=== PATIENT | female | born 1945 | race Caucasian/White ===

== ENCOUNTER 2016-10-02 21:05 | Inpatient (IN) | payer MEDICARE ==
[2016-10-02] MEDS ORDERED: DIPH,PERTUS(ACELL)TETVAC-LF 0.5 ML VIAL IM ONE (21:39)
[2016-10-02] MEDS ORDERED: traMADol 50 MG TAB PO STA (21:39)
[2016-10-02 21:44] LABS: Glucose,Whole Blood 100 mg/dL (75-99)
--- NOTE | 2016-10-02 21:45 | ED ---
Syncope HPI - General Chief Complaint: Altered Mental Status Stated Complaint: Poss TIA Time Seen by Provider: 10/02/16 21:27 Source: patient Mode of arrival: EMS Limitations: no limitations - History of Present Illness Initial Comments: This patient is a 71-year-old woman brought by EMS to be evaluated after she had what appears to be a syncopal episode. The patient states that she had been using her computer tonight when she started feeling lightheaded, she states it felt like she was going to pass out. She states that she has had this feeling before and it usually gets better if she does something, so she stood up, and then the next thing she recalls is waking up and being on the floor with her at her side. The patient states that in passing out feels like she had fallen and struck her lip, and also skinned her knee. She denies other injuries. The patient denies any other prodromal symptoms, including no chest pain, dyspnea, palpitations, diaphoresis, nausea or vomiting. She states that when she regained consciousness she was not having any of these symptoms either. The patient's phone EMS after she awoke and they brought her here to be evaluated. MD Complaint: loss of consciousness -: minutes(s) Prodromal Symptoms: lightheaded -: second(s) Witnessed: yes - by bystander Injuries Sustained Associated with Event: Mouth/Tongue Current Symptoms: back to baseline Context: standing up Treatments Prior to Arrival: none - Related Data Home Medications Medication Instructions Recorded Confirmed L.acidoph,Paracasei, B.lactis 1 tab PO DAILY 10/26/14 10/02/16 [Probiotic] Levothyroxine Sodium [Levoxyl] 150 mcg PO DAILY 10/26/14 10/02/16 Losartan Potassium 100 mg PO DAILY 10/26/14 10/02/16 Pioglitazone HCl [Actos] 15 mg PO DAILY 10/26/14 10/02/16 Vit No.124/Iron/FA 1 tab PO HS 10/26/14 10/02/16 [ Vitamin Tablet] Ranitidine HCl [Zantac] 150 mg PO DAILY 10/26/14 10/02/16 Risedronate Sodium [Actonel] 35 mg PO DORANTES 10/26/14 10/02/16 Zolpidem Tartrate [Ambien] 10 mg PO HS 10/26/14 10/02/16 traMADol HCL/ACETAMINOPHEN 1 tab PO Q4HR PRN 10/26/14 10/02/16 [Ultracet 37.5-325] traMADol HCl [Ultram] 50 mg PO TID PRN 10/26/14 10/02/16 Docusate [Colace] 100 mg PO HS 11/07/14 10/02/16 Biotin 5 mg PO HS 10/02/16 10/02/16 Cholecalciferol [Vitamin D3] 5,000 unit PO DAILY 10/02/16 10/02/16 Cyanocobalamin [Vitamin B-12] 500 mcg PO HS 10/02/16 10/02/16 Linaclotide [Linzess] 290 mcg PO DAILY 10/02/16 10/02/16 Magnesium Oxide 800 mg PO HS 10/02/16 10/02/16 Pantoprazole Sodium [Protonix] 40 mg PO HS 10/02/16 10/02/16 Tart Rose 1 tab PO HS 10/02/16 10/02/16 Wheat Dextrin [Benefiber] 1 pack PO QID 10/02/16 10/02/16 Allergies Allergy/AdvReac Type Severity Reaction Status Date / Time Anesthetics - Amide Type AdvReac MAKES RLS Verified 10/02/16 21:46 FLARE UP Review of Systems ROS Statement: Those systems with pertinent positive or pertinent negative responses have been documented in the HPI. ROS Other: All systems not noted in ROS Statement are negative. Constitutional: Denies: fever, chills, weakness Eyes: Denies: vision change Respiratory: Denies: cough, dyspnea Cardiovascular: Reports: syncope. Denies: chest pain, palpitations, dyspnea on exertion, orthopnea, edema Gastrointestinal: Denies: abdominal pain, vomiting, diarrhea Genitourinary: Denies: dysuria, hematuria Musculoskeletal: Denies: back pain Skin: Reports: other (Abrasion) Neurological: Denies: headache, weakness, numbness, paresthesias Hematological/Lymphatic: Denies: easy bleeding Past Medical History Past Medical History: Diabetes Mellitus, GERD/Reflux, Hypertension, Osteoarthritis (OA), Thyroid Disorder History of Any Multi-Drug Resistant Organisms: None Reported Past Surgical History: Bariatric Surgery Additional Past Surgical History / Comment(s): GASTRIC BYPASS 1993 Past Anesthesia/Blood Transfusion Reactions: Postoperative Nausea & Vomiting ( PONV) Past Psychological History: No Psychological Hx Reported Smoking Status: Never smoker Past Alcohol Use History: None Reported - Past Family History Brother(s) Family Medical History: Coronary Artery Disease (CAD), CVA/TIA, Diabetes Mellitus Father Family Medical History: Coronary Artery Disease (CAD), Diabetes Mellitus Mother Family Medical History: Coronary Artery Disease (CAD), Diabetes Mellitus General Exam Limitations: no limitations General appearance: alert, in no apparent distress Head exam: Present: atraumatic, normocephalic, normal inspection Eye exam: Present: normal appearance, PERRL, EOMI. Absent: scleral icterus, conjunctival injection ENT exam: Present: mucous membranes moist, other (Patient has abrasion to the mucosal aspect of the right lower lip. There is also contusion at the tip of the tongue. No laceration requiring sutures. No dental tenderness or version) Neck exam: Present: normal inspection, full ROM. Absent: tenderness, meningismus Respiratory exam: Present: normal lung sounds bilaterally. Absent: respiratory distress, wheezes, rales, rhonchi, stridor, chest wall tenderness Cardiovascular Exam: Present: regular rate, normal rhythm, normal heart sounds. Absent: systolic murmur, diastolic murmur, rubs, gallop GI/Abdominal exam: Present: soft. Absent: distended, tenderness, guarding, rebound, mass Extremities exam: Present: normal inspection, normal capillary refill. Absent: pedal edema, calf tenderness Back exam: Present: normal inspection, full ROM, other (No bony tenderness or deformity about the knee or mandible or facial bones). Absent: tenderness, CVA tenderness (R), CVA tenderness (L), vertebral tenderness Neurological exam: Present: alert, oriented X3, CN II-XII intact. Absent: motor sensory deficit Skin exam: Present: warm, dry, intact, normal color, abrasion (Anterior knee.) Course Vital Signs 10/02/16 10/02/16 10/02/16 21:11 22:17 23:14 Temperature 97.8 F Pulse Rate 83 75 79 Respiratory 16 16 16 Rate Blood Pressure 168/70 139/64 128/74 O2 Sat by Pulse 98 97 98 Oximetry EKG Findings - EKG Results: EKG: interpreted by SILVESTRE, WNL, sinus rhythm (Rate 68 bpm), normal axis, normal QRS, normal ST/T, no acute changes - RI, Pacemaker, Normal: Normal tracing: normal tracing Medical Decision Making - Lab Data Result diagrams: 10/02/16 21:45 10/02/16 21:45 Lab Results 10/02/16 10/02/16 10/02/16 Range/Units 21:42 21:45 21:45 WBC 11.4 H (3.8-10.6) k/uL RBC 4.33 (3.80-5.40) m/uL Hgb 12.6 (11.4-16.0) gm/dL Hct 38.5 (34.0-46.0) % MCV 88.9 (80.0-100.0) fL MCH 29.1 (25.0-35.0) pg MCHC 32.7 (31.0-37.0) g/dL RDW 14.2 (11.5-15.5) % Plt Count 579 H (150-450) k/uL Neutrophils % 79 % Lymphocytes % 10 % Monocytes % 7 % Eosinophils % 1 % Basophils % 1 % Neutrophils # 9.0 H (1.3-7.7) k/uL Lymphocytes # 1.1 (1.0-4.8) k/uL Monocytes # 0.8 (0-1.0) k/uL Eosinophils # 0.2 (0-0.7) k/uL Basophils # 0.1 (0-0.2) k/uL PT (9.0-12.0) sec INR (<1.1) APTT (22.0-30.0) sec Sodium (137-145) mmol/L Potassium (3.5-5.1) mmol/L Chloride (98-107) mmol/L Carbon Dioxide (22-30) mmol/L Anion Gap mmol/L BUN (7-17) mg/dL Creatinine (0.52-1.04) mg/dL Est GFR (MDRD) Af Amer (>60 ml/min/1.73 sqM) Est GFR (MDRD) Non-Af (>60 ml/min/1.73 sqM) Glucose (74-99) mg/dL POC Glucose (mg/dL) 100 H (75-99) mg/dL POC Glu Bread Wrapping Machine Feeder ID Calcium (8.4-10.2) mg/dL Total Bilirubin (0.2-1.3) mg/dL AST (14-36) U/L ALT (9-52) U/L Alkaline Phosphatase (38-126) U/L Total Creatine Kinase 182 H (30-135) U/L CK-MB (CK-2) 2.4 (0.0-2.4) ng/mL CK-MB (CK-2) Rel Index 1.3 Troponin I <0.012 (0.000-0.034) ng/mL Total Protein (6.3-8.2) g/dL Albumin (3.5-5.0) g/dL Urine Color Urine Appearance (Clear) Urine pH (5.0-8.0) Ur Specific [place] (1.001-1.035) Urine Protein (Negative) Urine Glucose (UA) (Negative) Urine Ketones (Negative) Urine Blood (Negative) Urine Nitrite (Negative) Urine Bilirubin (Negative) Urine Urobilinogen (<2.0) mg/dL Ur Leukocyte Esterase (Negative) Urine RBC (0-5) /hpf Urine WBC (0-5) /hpf Urine Bacteria (None) /hpf Hyaline Casts (0-2) /lpf 10/02/16 10/02/16 10/02/16 Range/Units 21:45 21:45 22:25 WBC (3.8-10.6) k/uL RBC (3.80-5.40) m/uL Hgb (11.4-16.0) gm/dL Hct (34.0-46.0) % MCV (80.0-100.0) fL MCH (25.0-35.0) pg MCHC (31.0-37.0) g/dL RDW (11.5-15.5) % Plt Count (150-450) k/uL Neutrophils % % Lymphocytes % % Monocytes % % Eosinophils % % Basophils % % Neutrophils # (1.3-7.7) k/uL Lymphocytes # (1.0-4.8) k/uL Monocytes # (0-1.0) k/uL Eosinophils # (0-0.7) k/uL Basophils # (0-0.2) k/uL PT 10.5 (9.0-12.0) sec INR 1.0 (<1.1) APTT 23.6 (22.0-30.0) sec Sodium 139 (137-145) mmol/L Potassium 4.4 (3.5-5.1) mmol/L Chloride 105 (98-107) mmol/L Carbon Dioxide 25 (22-30) mmol/L Anion Gap 9 mmol/L BUN 16 (7-17) mg/dL Creatinine 0.90 (0.52-1.04) mg/dL Est GFR (MDRD) Af Amer >60 (>60 ml/min/1.73 sqM) Est GFR (MDRD) Non-Af >60 (>60 ml/min/1.73 sqM) Glucose 100 H (74-99) mg/dL POC Glucose (mg/dL) (75-99) mg/dL POC Glu Bread Wrapping Machine Feeder ID Calcium 9.2 (8.4-10.2) mg/dL Total Bilirubin 0.4 (0.2-1.3) mg/dL AST 33 (14-36) U/L ALT 37 (9-52) U/L Alkaline Phosphatase 120 (38-126) U/L Total Creatine Kinase (30-135) U/L CK-MB (CK-2) (0.0-2.4) ng/mL CK-MB (CK-2) Rel Index Troponin I (0.000-0.034) ng/mL Total Protein 7.0 (6.3-8.2) g/dL Albumin 4.2 (3.5-5.0) g/dL Urine Color Light Yellow Urine Appearance Clear (Clear) Urine pH 5.5 (5.0-8.0) Ur Specific [place] 1.009 (1.001-1.035) Urine Protein Negative (Negative) Urine Glucose (UA) Negative (Negative) Urine Ketones Negative (Negative) Urine Blood Negative (Negative) Urine Nitrite Negative (Negative) Urine Bilirubin Negative (Negative) Urine Urobilinogen <2.0 (<2.0) mg/dL Ur Leukocyte Esterase Moderate H (Negative) Urine RBC <1 (0-5) /hpf Urine WBC 11 H (0-5) /hpf Urine Bacteria Rare H (None) /hpf Hyaline Casts 1 (0-2) /lpf Disposition Clinical Impression: Syncope Disposition: ADMITTED IP TO THIS [facility] Condition: Good Instructions: Syncope (ED) Referrals: Aj Cordero DO [Primary Care Provider] - 1-2 days
[2016-10-02 22:08] LABS: ALT 37 U/L (9-52); AST 33 U/L (14-36); Alkaline Phosphatase 120 U/L (38-126); Anion Gap 9 mmol/L; Blood Urea Nitrogen 16 mg/dL (7-17); Calcium 9.2 mg/dL (8.4-10.2); Carbon Dioxide 25 mmol/L (22-30); Chloride 105 mmol/L (98-107); Glucose 100 mg/dL (74-99); Non-African American GFR(MDRD) >60 (>60 ml/min/1.73 sqM); Partial Thromboplastin Time 23.6 sec (22.0-30.0); Potassium 4.4 mmol/L (3.5-5.1); Prothrombin Time 10.5 sec (9.0-12.0); Sodium 139 mmol/L (137-145); Total Bilirubin 0.4 mg/dL (0.2-1.3)
[2016-10-02 22:13] LABS: Basophils # (A) 0.1 k/uL (0-0.2); Basophils % (A) 1 %; CH 29.6; CHCM 33.5; Eosinophils # (A) 0.2 k/uL (0-0.7); Eosinophils % (A) 1 %; HCT 38.5 % (34.0-46.0); HGB 12.6 gm/dL (11.4-16.0); Luc # (Auto) 0.24; Luc % (Auto) 2; Lymphocytes # (A) 1.1 k/uL (1.0-4.8); Lymphocytes % (A) 10 %; MCH 29.1 pg (25.0-35.0); MCHC 32.7 g/dL (31.0-37.0); MCV 88.9 fL (80.0-100.0); Mean Platelet Volume 6.5; Monocytes # (A) 0.8 k/uL (0-1.0); Monocytes % (A) 7 %; Neutrophils % (A) 79 %; RBC 4.33 m/uL (3.80-5.40); RDW 14.2 % (11.5-15.5); WBC 11.4 k/uL (3.8-10.6); WBC (Perox) 11.98
--- NOTE | 2016-10-02 22:16 | CT ---
EXAM: CT Head Without Intravenous Contrast CLINICAL HISTORY: Reason: altered mental status TECHNIQUE: Axial computed tomography images of the head/brain without intravenous contrast. CTDI is 57.4 mGy and DLP is 909.4 mGy-cm This CT exam was performed using one or more of the following dose reduction techniques: automated exposure control, adjustment of the mA and/or kV according to patient size, and/or use of iterative reconstruction technique. Coronal and sagittal reformatted images were created and reviewed. COMPARISON: No relevant prior studies available. FINDINGS: Brain: Incidental right innominate VR space. No hemorrhage. No significant white matter disease. No edema. Ventricles: Unremarkable. No ventriculomegaly. Bones/joints: Unremarkable. No acute fracture. Soft tissues: Unremarkable. Sinuses: Unremarkable as visualized. No acute sinusitis. Mastoid air cells: Unremarkable as visualized. No mastoid effusion. IMPRESSION: Unremarkable head/brain CT.
[2016-10-02 22:19] LABS: Creatine Kinase 182 U/L (30-135)
[2016-10-02 22:31] LABS: Creatine Kinase MB 2.4 ng/mL (0.0-2.4); Troponin I <0.012 ng/mL (0.000-0.034)
[2016-10-02 22:38] LABS: Appearance,Urine Clear (Clear); Bacteria,Urine Rare /hpf; Bilirubin,Urine Negative (Negative); Glucose,Urine (UA) Negative (Negative); Ketones,Urine Negative (Negative); Leukocyte Esterase,Urine Moderate (Negative); Nitrite,Urine Negative (Negative); PH, Urine 5.5 (5.0-8.0); Particle Count 1285; Protein,Urine Negative (Negative); RBC,Urine <1 /hpf (0-5); Specific Gravity,Urine 1.009 (1.001-1.035); UA Billing (MACRO vs. MICRO) MICRO; Urobilinogen,Urine <2.0 mg/dL (<2.0); WBC,Urine 11 /hpf (0-5)
--- NOTE | 2016-10-02 22:41 | XR ---
EXAM: XR Chest, 1 View CLINICAL HISTORY: Reason: altered mental status TECHNIQUE: Frontal view of the chest. COMPARISON: CXR 11/08/14 FINDINGS: Lungs: Unremarkable. No consolidation. Pleural space: Unremarkable. No pneumothorax. Heart: Unremarkable. No cardiomegaly. Mediastinum: Unremarkable. Bones/joints: Multilevel degenerative changes of the spine. IMPRESSION: No acute findings.
[2016-10-02] MEDS ORDERED: NITROGLYCERIN SL TABS 0.4 MG TAB SUBLINGUAL PRN (23:30)
[2016-10-02] MEDS ORDERED: traMADol 50 MG TAB PO PRN (23:33)
[2016-10-03] MEDS ORDERED: FAMOTIDINE 20 MG TAB PO STA (00:02)
[2016-10-03] MEDS ORDERED: HYDROcodone/APAP 5-325MG 1 EACH TAB PO PRN (00:06)
[2016-10-03] MEDS ORDERED: HYDROcodone/APAP 5-325MG 1 EACH TAB PO STA (00:06)
[2016-10-03 00:36] LABS: Glucose,Whole Blood 101 mg/dL (75-99)
[2016-10-03 01:17] VITALS: BMI 30.5
[2016-10-03 05:59] LABS: Cholesterol 145 mg/dL (<200); HDL Cholesterol 54 mg/dL (40-60); Triglycerides 51 mg/dL (<150)
[2016-10-03 06:16] LABS: Creatine Kinase 277 U/L (30-135)
[2016-10-03 06:29] LABS: Troponin I <0.012 ng/mL (0.000-0.034)
[2016-10-03] MEDS ORDERED: LEVOTHYROXINE 50 MCG TAB PO SCH (06:30)
[2016-10-03 06:32] LABS: Creatine Kinase MB 3.1 ng/mL (0.0-2.4)
[2016-10-03 08:16] VITALS: RESP 16; TEMP 98.1
--- NOTE | 2016-10-03 08:57 | US ---
EXAMINATION TYPE: US carotid duplex BILAT DATE OF EXAM: 10/03/2016 7:42 AM COMPARISON: NONE CLINICAL HISTORY: syncope. EXAM MEASUREMENTS: RIGHT: Peak Systolic Velocity (PSV) cm/sec ----- Right CCA: 98.2 ----- Right ICA: 92.2 ----- Right ECA: 97.7 ICA/CCA ratio: 0.9 RIGHT: End Diastole cm/sec ----- Right CCA: 24.5 ----- Right ICA: 28.5 ----- Right ECA: 12.0 LEFT: Peak Systolic Velocity (PSV) cm/sec ----- Left CCA: 18.6 ----- Left ICA: 30.9 ----- Left ECA: 7.9 ICA/CCA ratio: 1.2 LEFT: End Diastole cm/sec ----- Left CCA: 18.6 ----- Left ICA: 30.9 ----- Left ECA: 7.9 VERTEBRALS (direction of flow): Right Vertebral: Antegrade Left Vertebral: Antegrade No elevated velocities, no significant stenosis identified, mild bilateral plaque. IMPRESSION: No hemodynamically significant stenosis. Mild bilateral atherosclerosis.
[2016-10-03] MEDS ORDERED: LACTOBACILLUS ACIDOPH & BULGAR 1 EACH PACKET PO SCH ×2 (09:00→21:00)
[2016-10-03] MEDS ORDERED: WHEAT DEXTRIN PO SCH (09:00)
[2016-10-03] MEDS ORDERED: FAMOTIDINE 20 MG TAB PO SCH (09:00)
[2016-10-03] MEDS ORDERED: CHOLECALCIFEROL 1,000 UNIT TAB PO SCH (09:00)
[2016-10-03] MEDS ORDERED: PIOGLITAZONE 15 MG TAB PO SCH (09:00)
[2016-10-03] MEDS ORDERED: NON-FORMULARY DRUG (Linaclotide [Linzess] 290 MCG) PO SCH (09:00)
[2016-10-03] MEDS ORDERED: ASPIRIN 325 MG TAB PO SCH (09:00)
[2016-10-03] MEDS ORDERED: LOSARTAN 50 MG TAB PO SCH (09:00)
--- NOTE | 2016-10-03 09:11 | P.CRDCN ---
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 The patient was at home and the last thing she remembers that she was sitting working on her computer. Apparently the patient lost her consciousness while she was standing up according to her . Doesn't recall having any chest pain or discomfort or difficulty breathing. She was slightly confused after that episode of syncope. The patient has been maintaining normal sinus mechanism and no arrhythmia was noted during her hospitalization. The EKG showed sinus rhythm without any significant changes. The cardiac enzymes were checked and came in to be unremarkable. I will obtain an echocardiogram with Doppler. The patient already underwent carotid duplex study. If the echo and a carotid looks good the patient might be able to be discharged home and have a workup as an outpatient including stress test and event monitor. Past Medical History Past Medical History: Diabetes Mellitus, GERD/Reflux, Hypertension, Osteoarthritis (OA), Thyroid Disorder Additional Past Medical History / Comment(s): Restless Leg Syndrome (RLS) History of Any Multi-Drug Resistant Organisms: None Reported Past Surgical History: Bariatric Surgery, Joint Replacement, Ventriculoperitoneal Shunt Additional Past Surgical History / Comment(s): GASTRIC BYPASS 1993. (R) Hip replacement 05/12/2016 with revision on 05/20/2016 in [place] Past Anesthesia/Blood Transfusion Reactions: Postoperative Nausea & Vomiting ( PONV) Additional Past Anesthesia/Blood Transfusion Reaction / Comment(s): Is related to RLS Past Psychological History: No Psychological Hx Reported Smoking Status: Never smoker Past Alcohol Use History: None Reported Additional Past Alcohol Use History / Comment(s): 1 alcohol related beverage /yr Past Drug Use History: None Reported - Past Family History Brother(s) Family Medical History: Coronary Artery Disease (CAD), CVA/TIA, Diabetes Mellitus Father Family Medical History: Coronary Artery Disease (CAD), Diabetes Mellitus, Hypertension Mother Family Medical History: Coronary Artery Disease (CAD), Diabetes Mellitus, Hypertension Medications and Allergies Home Medications Medication Instructions Recorded Confirmed Type L.acidoph,Paracasei, B.lactis 1 tab PO DAILY 10/26/14 10/02/16 History [Probiotic] Levothyroxine Sodium [Levoxyl] 150 mcg PO DAILY 10/26/14 10/02/16 History Losartan Potassium 100 mg PO DAILY 10/26/14 10/02/16 History Pioglitazone HCl [Actos] 15 mg PO DAILY 10/26/14 10/02/16 History Vit No.124/Iron/FA 1 tab PO HS 10/26/14 10/02/16 History [ Vitamin Tablet] Ranitidine HCl [Zantac] 150 mg PO DAILY 10/26/14 10/02/16 History Risedronate Sodium [Actonel] 35 mg PO DORANTES 10/26/14 10/02/16 History Zolpidem Tartrate [Ambien] 10 mg PO HS 10/26/14 10/02/16 History traMADol HCL/ACETAMINOPHEN 1 tab PO Q4HR PRN 10/26/14 10/02/16 History [Ultracet 37.5-325] traMADol HCl [Ultram] 50 mg PO TID PRN 10/26/14 10/02/16 History Docusate [Colace] 100 mg PO HS 11/07/14 10/02/16 History Biotin 5 mg PO HS 10/02/16 10/02/16 History Cholecalciferol [Vitamin D3] 5,000 unit PO DAILY 10/02/16 10/02/16 History Cyanocobalamin [Vitamin B-12] 500 mcg PO HS 10/02/16 10/02/16 History Linaclotide [Linzess] 290 mcg PO DAILY 10/02/16 10/02/16 History Magnesium Oxide 800 mg PO HS 10/02/16 10/02/16 History Pantoprazole Sodium [Protonix] 40 mg PO HS 10/02/16 10/02/16 History Tart Rose 1 tab PO HS 10/02/16 10/02/16 History Wheat Dextrin [Benefiber] 1 pack PO QID 10/02/16 10/02/16 History Allergies Allergy/AdvReac Type Severity Reaction Status Date / Time Anesthetics - Amide Type AdvReac MAKES RLS Verified 10/02/16 21:46 FLARE UP Physical Exam Vitals: Vital Signs Temp Pulse Pulse Resp BP BP Pulse Ox 10/03/16 08:00 98.1 F 96 16 114/60 10/03/16 05:00 97.6 F 70 17 129/77 05/04/17 23:59 98.3 F 18 137/58 10/02/16 23:51 78 18 112/86 98 Intake and Output 10/02/16 10/03/16 10/03/16 22:59 06:59 14:59 Other: Voiding Method Toilet # Voids 1 Weight 71 kg 71 kg Patient Weight 10/04/16 06:59 Weight 71 kg - Constitutional General appearance: no acute distress - Respiratory Respiratory: bilateral: CTA - Cardiovascular Rhythm: regular Heart sounds: normal: S1, S2 Results 10/02/16 21:45 10/02/16 21:45 Cardiac Enzymes 10/03/16 Range/Units 05:30 CK-MB (CK-2) 3.1 H* (0.0-2.4) ng/mL Troponin I <0.012 (0.000-0.034) ng/mL Lipids 10/03/16 Range/Units 05:30 Triglycerides 51 (<150) mg/dL Cholesterol 145 (<200) mg/dL HDL Cholesterol 54 (40-60) mg/dL Current Medications Generic Name Dose Route Start Last Admin Trade Name Freq PRN Reason Stop Dose Admin Hydrocodone Bitart/Acetaminophen 1 each 10/03/16 00:06 [place] 5-325 PO Q6HR PRN Moderate Pain Aspirin 325 mg 10/03/16 09:00 10/03/16 08:32 Aspirin PO Not Given DAILY [facility] Cholecalciferol 5,000 unit 10/03/16 09:00 10/03/16 08:34 Vitamin D3 PO 5,000 unit DAILY [facility] Administration Cyanocobalamin 500 mcg 10/03/16 21:00 Vitamin B-12 PO HS [facility] Docusate Sodium 100 mg 10/03/16 21:00 Colace PO HS [facility] Famotidine 20 mg 10/03/16 09:00 10/03/16 08:36 Pepcid PO 20 mg DAILY [facility] Administration Lactobacillus Acidoph/Bulgaricus 1 each 10/03/16 21:00 Lactinex PO HS [facility] Levothyroxine Sodium 150 mcg 10/03/16 06:30 10/03/16 05:53 Synthroid PO 150 mcg 0630 [facility] Administration Losartan Potassium 100 mg 10/03/16 09:00 10/03/16 08:35 Cozaar PO 100 mg DAILY [facility] Administration Magnesium Oxide 800 mg 10/03/16 21:00 Mag-Ox PO HS [facility] Multivi/Iron Carb/Fe Sulf/FA/Prenat 1 each 10/03/16 21:00 -U Capsule PO HS [facility] Nitroglycerin 0.4 mg 10/02/16 23:30 Nitrostat SUBLINGUAL Q5M PRN Chest Pain Non-Formulary Medication 290 mcg 10/03/16 09:00 Linaclotide [Linzess] PO DAILY [facility] Pantoprazole Sodium 40 mg 10/03/16 21:00 Protonix PO HS [facility] Pioglitazone HCl 15 mg 10/03/16 09:00 10/03/16 08:35 Actos PO 15 mg DAILY [facility] Administration Tramadol HCl 50 mg 10/02/16 23:33 10/03/16 05:52 Ultram PO 50 mg TID PRN Administration Pain Zolpidem Tartrate 10 mg 10/03/16 21:00 Ambien PO HS [facility] Intake and Output 10/02/16 10/03/16 10/03/16 22:59 06:59 14:59 Other: Voiding Method Toilet # Voids 1 Weight 71 kg 71 kg Patient Weight 10/04/16 06:59 Weight 71 kg Assessment and Plan Plan: Assessment Syncopal episode Plan #1 the patient's syncope is likely to be vasovagal #2 severity underlying CAD to be ruled out #3 we'll follow-up with the echocardiogram #4 follow-up with a carotid duplex study
--- NOTE | 2016-10-03 10:45 | ECHOF ---
Referral Reason:syncope MEASUREMENTS -------- HEIGHT: 154.9 cm WEIGHT: 70.8 kg BP: 114/60 IVSd: 0.8 cm (0.6 - 1.1) LVIDd: 3.9 cm (3.9 - 5.3) LVPWd: 0.9 cm (0.6 - 1.1) IVSs: 1.4 cm LVIDs: 1.9 cm LVPWs: 1.8 cm Ao Diam: 2.8 cm (2.0 - 3.7) AV Cusp: 1.7 cm (1.5 - 2.6) LA Diam: 3.7 cm (2.7 - 3.8) MV EXCURSION: 17.007 mm (> 18.000) MV EF SLOPE: 91 mm/s (70 - 150) EPSS: 0.6 cm MV E Telly: 0.96 m/s MV DecT: 210 ms MV A Telly: 0.73 m/s MV E/A Ratio: 1.30 RAP: 5.00 mmHg RVSP: 23.24 mmHg FINDINGS -------- Sinus rhythm. This was a technically good study. Left ventricular wall thickness is normal. Overall left ventricular systolic function is normal with, an EF between 55 - 60 %. The right ventricle is normal in size and function. The left atrium is normal in size. The right atrium is normal in size. The aortic valve is trileaflet, and appears structurally normal. No aortic stenosis or regurgitation. The mitral valve leaflets are mildly thickened. Mild mitral annular calcification present. There is trace mitral regurgitation. Trace tricuspid regurgitation present. The right ventricular systolic pressure, as measured by Doppler, is 23.24mmHg. Pulmonic valve appears structurally normal. The aortic root size is normal. The pericardium is normal. CONCLUSIONS -------- 1. Sinus rhythm. 2. Mild mitral annular calcification present. 3. There is trace mitral regurgitation. 4. Trace tricuspid regurgitation present. 5. The right ventricular systolic pressure, as measured by Doppler, is 23.24mmHg. 6. Pulmonic valve appears structurally normal. 7. The aortic root size is normal. 8. The pericardium is normal. 9. This was a technically good study. 10. Left ventricular wall thickness is normal. 11. Overall left ventricular systolic function is normal with, an EF between 55 - 60 %. 12. The right ventricle is normal in size and function. 13. The left atrium is normal in size. 14. The right atrium is normal in size. 15. The aortic valve is trileaflet, and appears structurally normal. No aortic stenosis or regurgitation. 16. The mitral valve leaflets are mildly thickened. CHHA: Arianne Ballesteros RDCS
[2016-10-03 10:53] LABS: Creatine Kinase 319 U/L (30-135)
[2016-10-03 11:06] LABS: Troponin I <0.012 ng/mL (0.000-0.034)
[2016-10-03 11:15] LABS: Creatine Kinase MB 3.3 ng/mL (0.0-2.4)
[2016-10-03 12:42] VITALS: PULSE 98
[2016-10-03 12:45] VITALS: BP 149/68
--- NOTE | 2016-10-03 16:31 | P.HPIM ---
History of Present Illness H&P Date: 10/03/16 Chief Complaint: Syncope Will serve both H&P and discharge summary This 71-year-old female patient of Dr. Perez, has underlying history of diabetes mellitus type 2, on oral agents, hypertension, hypothyroidism admitted to the hospital via ER evaluation secondary to acute syncope. He recently arrived from [place] one and half days ago with their winterizing there for the past 6 months, they drove over there is no signs of dehydration or GI losses anywhere in between no new medication changes except for Amitiza Patient was fine at home and he she was in the computer sitting down, apparently she stood up and thereafter she started having fading out spells, she is passed out for about 10 seconds, there is no weakness seizure-like activity or focal motor neurologic deficits, patient felt a bit confused and was mumbling, no light sugar check at home no blood pressure check at home EMS did not provide any report ever when she was evaluated she is without any symptoms symptoms, most likely secondary to vasovagal. while in the hospital ,patient's orthostatic is normal no arrhythmias noted on monitor, pyuria noted on urinalysis, antibiobiotics were dispensed for home discharge laying in progress when seen, cardiology has seen her with Dr. Hahn with recommendations to do outpatient workup including a stress test and an event monitor. Patient denies any chest pain, EKG showed normal sinus rhythm with no ectopy, no QT or Pr prolongation, computed tomography scan of the brain was unremarkable chest x-ray shows no acute findings Echocardiogram shows sinus rhythm with mild annular calcification, trace MR and trace UT, right ventricle systolic pressure 23, no aortic stenosis, EF 55-60%, Past Medical History Past Medical History: Diabetes Mellitus, GERD/Reflux, Hypertension, Osteoarthritis (OA), Thyroid Disorder Additional Past Medical History / Comment(s): Restless Leg Syndrome (RLS) History of Any Multi-Drug Resistant Organisms: None Reported Past Surgical History: Bariatric Surgery, Joint Replacement, Ventriculoperitoneal Shunt Additional Past Surgical History / Comment(s): GASTRIC BYPASS 1993. (R) Hip replacement 05/12/2016 with revision on 05/20/2016 in [place] Past Anesthesia/Blood Transfusion Reactions: Postoperative Nausea & Vomiting ( PONV) Additional Past Anesthesia/Blood Transfusion Reaction / Comment(s): Is related to RLS Past Psychological History: No Psychological Hx Reported Smoking Status: Never smoker Past Alcohol Use History: None Reported Additional Past Alcohol Use History / Comment(s): 1 alcohol related beverage /yr Past Drug Use History: None Reported - Past Family History Brother(s) Family Medical History: Coronary Artery Disease (CAD), CVA/TIA, Diabetes Mellitus Father Family Medical History: Coronary Artery Disease (CAD), Diabetes Mellitus, Hypertension Mother Family Medical History: Coronary Artery Disease (CAD), Diabetes Mellitus, Hypertension Medications and Allergies Home Medications Medication Instructions Recorded Confirmed Type L.acidoph,Paracasei, B.lactis 1 tab PO DAILY 10/26/14 10/02/16 History [Probiotic] Levothyroxine Sodium [Levoxyl] 150 mcg PO DAILY 10/26/14 10/02/16 History Losartan Potassium 100 mg PO DAILY 10/26/14 10/02/16 History Pioglitazone HCl [Actos] 15 mg PO DAILY 10/26/14 10/02/16 History Vit No.124/Iron/FA 1 tab PO HS 10/26/14 10/02/16 History [ Vitamin Tablet] Ranitidine HCl [Zantac] 150 mg PO DAILY 10/26/14 10/02/16 History Risedronate Sodium [Actonel] 35 mg PO DORANTES 10/26/14 10/02/16 History Zolpidem Tartrate [Ambien] 10 mg PO HS 10/26/14 10/02/16 History traMADol HCL/ACETAMINOPHEN 1 tab PO Q4HR PRN 10/26/14 10/02/16 History [Ultracet 37.5-325] traMADol HCl [Ultram] 50 mg PO TID PRN 10/26/14 10/02/16 History Docusate [Colace] 100 mg PO HS 11/07/14 10/02/16 History Biotin 5 mg PO HS 10/02/16 10/02/16 History Cholecalciferol [Vitamin D3] 5,000 unit PO DAILY 10/02/16 10/02/16 History Cyanocobalamin [Vitamin B-12] 500 mcg PO HS 10/02/16 10/02/16 History Linaclotide [Linzess] 290 mcg PO DAILY 10/02/16 10/02/16 History Magnesium Oxide 800 mg PO HS 10/02/16 10/02/16 History Pantoprazole Sodium [Protonix] 40 mg PO HS 10/02/16 10/02/16 History Tart Rose 1 tab PO HS 10/02/16 10/02/16 History Wheat Dextrin [Benefiber] 1 pack PO QID 10/02/16 10/02/16 History Allergies Allergy/AdvReac Type Severity Reaction Status Date / Time Anesthetics - Amide Type AdvReac MAKES RLS Verified 10/02/16 21:46 FLARE UP Physical Exam Vitals: Vital Signs Temp Pulse Pulse Resp BP BP Pulse Ox 10/03/16 12:44 16 149/68 10/03/16 12:37 98 16 156/78 10/03/16 12:33 61 16 146/59 10/03/16 12:00 16 10/03/16 08:00 98.1 F 96 16 114/60 10/03/16 05:00 97.6 F 70 17 129/77 10/02/16 23:59 98.3 F 18 137/58 10/02/16 23:51 78 18 112/86 98 Intake and Output 10/03/16 10/03/16 10/03/16 06:59 14:59 22:59 Other: Voiding Method Toilet Toilet # Voids 1 Weight 71 kg 71 kg Patient Weight 10/04/16 06:59 Weight 71 kg Results CBC & Chem 7: 10/02/16 21:45 10/02/16 21:45 Labs: Abnormal Lab Results - Last 24 Hours (Table) 10/03/16 10/03/16 10/03/16 Range/Units 00:34 05:30 09:32 POC Glucose (mg/dL) 101 H (75-99) mg/dL Total Creatine Kinase 277 H 319 H (30-135) U/L CK-MB (CK-2) 3.1 H* 3.3 H* (0.0-2.4) ng/mL Thrombosis Risk Factor Assmnt - Choose All That Apply Other Risk Factors: (recent travel) Each Risk Factor Represents 2 Points: Age 61-74 years Each Risk Factor Represents 3 Points: Family history of DVT/PE Thrombosis Risk Factor Assessment Total Risk Factor Score: 5 Thrombosis Risk Factor Assessment Level: High Risk Assessment and Plan Plan: 1. 1. Acute syncope, no arrhythmias noted during hospital monitoring, patient was seen by cardiology, orthostatics negative, no focal motor neurologic deficits, patient is at baseline, consult made to Dr. Hahn cardiology, a cardiogram performed with results below while in the hospital ,patient's orthostatic is normal no arrhythmias noted on monitor, pyuria noted on urinalysis, antibiobiotics were dispensed for home discharge laying in progress when seen, cardiology has seen her with Dr. Hahn with recommendations to do outpatient workup including a stress test and an event monitor. Patient denies any chest pain, EKG showed normal sinus rhythm with no ectopy, no QT or Pr prolongation, computed tomography scan of the brain was unremarkable chest x-ray shows no acute findings Echocardiogram shows sinus rhythm with mild annular calcification, trace MR and trace UT, right ventricle systolic pressure 23, no aortic stenosis, EF 55-60%, 2. Diabetes mellitus type 2 for which she is currently on Actos 15 3. Elevated CPK without any elevation of troponin most likely secondary to fall , patient was re recommended to increase fluid intake normal creatinine of 0.9 4. Hypertension stable on losartan 100 mg daily statics stable 5. History of thrombocytosis stable 6. Gout patient is not on any anti-hyperuricemia medications 7. Hypothyroidism on levothyroxine Discharge condition stable and improved Discharge Medication List L.acidoph,Paracasei, B.lactis [Probiotic] 1 tab PO DAILY 10/26/14 [History] Levothyroxine Sodium [Levoxyl] 150 mcg PO DAILY 10/26/14 [History] Losartan Potassium 100 mg PO DAILY 10/26/14 [History] Pioglitazone HCl [Actos] 15 mg PO DAILY 10/26/14 [History] Vit No.124/Iron/FA [ Vitamin Tablet] 1 tab PO HS 10/26/14 [ History] Ranitidine HCl [Zantac] 150 mg PO DAILY 10/26/14 [History] Risedronate Sodium [Actonel] 35 mg PO DORANTES 10/26/14 [History] Zolpidem Tartrate [Ambien] 10 mg PO HS 10/26/14 [History] traMADol HCL/ACETAMINOPHEN [Ultracet 37.5-325] 1 tab PO Q4HR PRN 10/26/14 [ History] traMADol HCl [Ultram] 50 mg PO TID PRN 10/26/14 [History] Docusate [Colace] 100 mg PO HS 11/07/14 [History] Biotin 5 mg PO HS 10/02/16 [History] Cholecalciferol [Vitamin D3] 5,000 unit PO DAILY 10/02/16 [History] Cyanocobalamin [Vitamin B-12] 500 mcg PO HS 10/02/16 [History] Linaclotide [Linzess] 290 mcg PO DAILY 10/02/16 [History] Magnesium Oxide 800 mg PO HS 10/02/16 [History] Pantoprazole Sodium [Protonix] 40 mg PO HS 10/02/16 [History] Tart Rose 1 tab PO HS 10/02/16 [History] Wheat Dextrin [Benefiber] 1 pack PO QID 10/02/16 [History] Aspirin EC [Ecotrin Low Dose] 81 mg PO DAILY #30 tablet. 10/03/16 [Rx] Ciprofloxacin HCl [Cipro] 500 mg PO Q12HR #14 tablet 10/03/16 [Rx]
[2016-10-03] MEDS ORDERED: NON-FORMULARY DRUG (Biotin [Biotin] 5 MG) PO SCH (21:00)
[2016-10-03] MEDS ORDERED: DOCUSATE 100 MG CAP PO SCH (21:00)
[2016-10-03] MEDS ORDERED: CYANOCOBALAMIN 500 MCG TAB PO SCH (21:00)
[2016-10-03] MEDS ORDERED: ZOLPIDEM 10 MG TAB PO SCH (21:00)
[2016-10-03] MEDS ORDERED: MAGNESIUM OXIDE 400 MG TAB PO SCH (21:00)
[2016-10-03] MEDS ORDERED: PANTOPRAZOLE 40 MG TABLET PO SCH (21:00)
[2016-10-03] MEDS ORDERED: PRENATAL VIT-IRON-FOLIC ACID 1 EACH CAP PO SCH (21:00)
== END 2016-10-03 14:43 | disposition home or self-care (01) | DRG 312 ==
LOC: EC 21:05 → 6ICU 23:30
PROVIDERS: ADMIT Family Medicine; ATTEND Family Medicine
DX: R55 Syncope and collapse (principal); E11.9 Type 2 diabetes mellitus without complications; I10 Essential (primary) hypertension; M10.9 Gout, unspecified; E03.9 Hypothyroidism, unspecified; G25.81 Restless legs syndrome; K21.9 Gastro-esophageal reflux disease without esophagitis; M19.91 Primary osteoarthritis, unspecified site; Z96.641 Presence of right artificial hip joint; Z98.2 Presence of cerebrospinal fluid drainage device; Z98.84 Bariatric surgery status; Z79.84 Long term (current) use of oral hypoglycemic drugs; Z79.899 Other long term (current) drug therapy; Z82.49 Family history of ischemic heart disease and other diseases of the circulatory system; Z83.3 Family history of diabetes mellitus
CPT/HCPCS: 36415; 70450; 71010; 80053; 80061; 81001; 82550; 82553; 84484; 85025; 85610; 85730; 90471; 90715; 93005; 93306; 93880; 99285

== ENCOUNTER → 2016-12-15 | Outpatient (CLI) | payer MEDICARE ==
--- NOTE | 2016-12-16 13:58 | MM ---
Reason for exam: screening (asymptomatic). Last mammogram was performed 1 year and 2 months ago. History: Patient is postmenopausal and is nulliparous. Physical Findings: A clinical breast exam by your physician is recommended on an annual basis and results should be correlated with mammographic findings. MG 3D Screening Mammo W/Cad Bilateral CC and MLO view(s) were taken. Prior study comparison: October 26, 2015, bilateral MG 3d diag mammo w/cad SHA. March 07, 2015, left breast MG work up mamm w CAD LT. The breast tissue is almost entirely fat. There is chronic nodularity in the left breast. No significant changes when compared with prior studies. ASSESSMENT: Benign, BI-RAD 2 RECOMMENDATION: Routine screening mammogram of both breasts in 1 year.
== END | disposition home or self-care (01) ==
LOC: RADMAMWWP 11:37
PROVIDERS: ATTEND Family Medicine
DX: Z12.31 Encounter for screening mammogram for malignant neoplasm of breast (principal)
CPT/HCPCS: 77063; G0202

== ENCOUNTER → 2016-12-15 | Outpatient (CLI) | payer MEDICARE ==
--- NOTE | 2016-12-15 12:44 | XR ---
EXAMINATION TYPE: XR Hip Complete RT, XR pelvis AP view DATE OF EXAM: 12/15/2016 CLINICAL HISTORY: pain TECHNIQUE: AP and frogleg views of the right hip are obtained. COMPARISON: None. FINDINGS: There is no acute fracture/dislocation evident. The joint space appears within normal li mits. The overlying soft tissue appears unremarkable. Right hemiprosthesis is in place. IMPRESSION: 1. There is no acute fracture or dislocation. ICD 10 NO FRACTURE, INITIAL EVALUATION EXAMINATION TYPE: XR Hip Complete RT, XR pelvis AP view DATE OF EXAM: 12/15/2016 CLINICAL HISTORY: pain TECHNIQUE: Single view the pelvis is submitted. FINDINGS: No evidence for fracture, dislocation or bony lesion. Bilateral hip prostheses are in plac e. SI joints appear symmetric. IMPRESSION: 1. No acute fracture or dislocation seen. ICD 10 NO FRACTURE, INITIAL EVALUATION
== END ==
LOC: RADXRMAIN 12:07
PROVIDERS: ATTEND Specialist
DX: S72.21XA Displaced subtrochanteric fracture of right femur, initial encounter for closed fracture (principal); Z96.641 Presence of right artificial hip joint
CPT/HCPCS: 72170; 73502

== ENCOUNTER 2017-10-28 17:10 | Emergency (ER) | payer MEDICARE ==
[2017-10-28 17:19] VITALS: TEMP 97
[2017-10-28] MEDS ORDERED: MORPHINE SULFATE 2 MG/ML SYRINGE IVP STA (17:32)
[2017-10-28] MEDS ORDERED: ONDANSETRON 4 MG/2 ML VIAL IVP STA (17:33)
--- NOTE | 2017-10-28 17:35 | ED ---
General Adult HPI - General Chief complaint: Fall Stated complaint: Fall Time Seen by Provider: 10/28/17 17:15 Source: patient, RN notes reviewed Mode of arrival: ambulatory Limitations: no limitations - History of Present Illness Initial comments: This a 72-year-old female presents emergency Department complaining of right wrist pain. Patient states she tripped on a sidewalk fell and landed on her wrist. Patient states she bumped her head on the sidewalk but does not have a headache she did not lose consciousness. Patient denies any neck pain. Patient denies numbness or weakness. Patient has a slight abrasion on her left eyebrow. Patient denies any chest pain back pain or left extremity pain. Patient denies any hip pain or leg pain. Patient was able to ambulate without problem. - Related Data Home Medications Medication Instructions Recorded Confirmed Levothyroxine Sodium [Levoxyl] 150 mcg PO DAILY 10/26/14 10/28/17 Losartan Potassium 100 mg PO DAILY 10/26/14 10/28/17 Pioglitazone HCl [Actos] 15 mg PO DAILY 10/26/14 10/28/17 Vit No.124/Iron/Folic 1 tab PO HS 10/26/14 10/28/17 [ Vitamin Tablet] Ranitidine HCl [Zantac] 150 mg PO DAILY 10/26/14 10/28/17 Risedronate Sodium [Actonel] 35 mg PO DORANTES 10/26/14 10/28/17 Zolpidem Tartrate [Ambien] 10 mg PO HS 10/26/14 10/28/17 traMADol HCl [Ultram] 50 mg PO TID@1500,1900,2300 10/26/14 10/28/17 Docusate [Colace] 100 mg PO HS 11/07/14 10/28/17 Biotin 10 mg PO HS 10/02/16 10/28/17 Cholecalciferol [Vitamin D3] 5,000 unit PO HS 10/02/16 10/28/17 Cyanocobalamin [Vitamin B-12] 500 mcg PO HS 10/02/16 10/28/17 Magnesium Oxide 800 mg PO HS 10/02/16 10/28/17 Pantoprazole Sodium [Protonix] 40 mg PO HS 10/02/16 10/28/17 Tart Rose 1 tab PO HS 10/02/16 10/28/17 Wheat Dextrin [Benefiber] 1 pack PO QID 10/02/16 10/28/17 Ascorbic Acid [Vitamin C] 500 mg PO HS 10/28/17 10/28/17 Ferrous Sulfate [Feosol] 325 mg PO HS 10/28/17 10/28/17 Previous Rx's Medication Instructions Recorded Hydrocodone/Acetaminophen [Lowber 1 each PO Q4HR PRN #14 tab 10/28/17 5-325] Allergies Allergy/AdvReac Type Severity Reaction Status Date / Time Anesthetics - Amide Type AdvReac MAKES RLS Verified 10/28/17 17:33 FLARE UP Review of Systems ROS Statement: Those systems with pertinent positive or pertinent negative responses have been documented in the HPI. ROS Other: All systems not noted in ROS Statement are negative. Past Medical History Past Medical History: Diabetes Mellitus, GERD/Reflux, Hypertension, Osteoarthritis (OA), Thyroid Disorder Additional Past Medical History / Comment(s): Restless Leg Syndrome (RLS) History of Any Multi-Drug Resistant Organisms: None Reported Past Surgical History: Bariatric Surgery, Joint Replacement, Ventriculoperitoneal Shunt Additional Past Surgical History / Comment(s): GASTRIC BYPASS 1993. (R) Hip replacement 05/12/2016 with revision on 05/20/2016 in [place] Past Anesthesia/Blood Transfusion Reactions: Postoperative Nausea & Vomiting ( PONV) Additional Past Anesthesia/Blood Transfusion Reaction / Comment(s): Is related to RLS Past Psychological History: No Psychological Hx Reported Smoking Status: Never smoker Past Alcohol Use History: None Reported Past Drug Use History: None Reported - Past Family History Brother(s) Family Medical History: Coronary Artery Disease (CAD), CVA/TIA, Diabetes Mellitus Father Family Medical History: Coronary Artery Disease (CAD), Diabetes Mellitus, Hypertension Mother Family Medical History: Coronary Artery Disease (CAD), Diabetes Mellitus, Hypertension General Exam - General Exam Comments Initial Comments: GENERAL Patient is well-developed and well-nourished. Patient is in mild distress. EYES Patient's pupils are equal and round. Extraocular motion is intact SKIN Unremarkable NEURO The patient is alert and oriented 3 PYSCH Patient has normal interpersonal interactions. MUSCULOSKELETAL Right wrist is extremely tender in the posterior aspect of the wrist more on the radial aspect. Patient has good sensation and capillary refill to all her fingers Limitations: no limitations Course Vital Signs 10/28/17 10/28/1710/28/18 17:16 19:42 19:44 Temperature 97.0 F L Pulse Rate 62 60 92 Respiratory 18 18 18 Rate Blood Pressure 143/60 143/66 208/92 O2 Sat by Pulse 100 100 100 Oximetry 10/28/17 10/28/17 10/28/17 19:47 19:53 19:56 Temperature Pulse Rate 98 54 L 66 Respiratory 16 18 18 Rate Blood Pressure 214/117 154/63 146/67 O2 Sat by Pulse 100 100 100 Oximetry 10/28/17 10/28/17 10/28/17 19:59 20:02 20:05 Temperature Pulse Rate 56 L 56 L 55 L Respiratory 18 18 18 Rate Blood Pressure 151/67 130/57 134/63 O2 Sat by Pulse 100 100 100 Oximetry Procedures - Orthopedic Fracture Reduction Fracture #1 Consent Obtained: verbal consent Time Out Performed: Yes Side: right Fracture Reduction Location: radius Analgesia: procedural sedation Technique: traction/counter-traction Post-Reduction Neuro Exam: intact Post-Reduction Vascular Exam: intact Splint Applied: Yes Patient Tolerated Procedure: well - Procedural Sedation Procedural Sedation Start Time: 19:35 Indications: fracture/dislocation reduction Preparation: site monitor applied, pulse oximeter, capnometry used, supplemental O2 applied IV Etomidate Dose (mgs): 15 Complications: none Patient Tolerated Procedure: well Additional Comments: Stop time was at 1999 Medical Decision Making - Medical Decision Making X-ray of the wrist shows a comminuted angulated fracture of the distal radius. Disposition Clinical Impression: Distal radial fracture Disposition: HOME SELF-CARE Instructions: Arm Fracture in Adults (ED), Fall Prevention for Older Adults (ED ) Prescriptions: Hydrocodone/Acetaminophen [Lowber 5-325] 1 each PO Q4HR PRN #14 tab PRN Reason: Pain Is patient prescribed a controlled substance at d/c from ED?: Yes When asked, does pt state using other controlled substances?: No If opioid is for acute pain is fill amount 7 days or less?: Yes Referrals: Aj Cordero DO [Primary Care Provider] - 1-2 days Chung Palma MD [STAFF PHYSICIAN] - 1-2 days Time of Disposition: 19:51
--- NOTE | 2017-10-28 19:26 | XR ---
EXAMINATION TYPE: XR wrist complete RT DATE OF EXAM: 10/28/2017 COMPARISON: NONE HISTORY: Fall, pain TECHNIQUE: 3 views right wrist FINDINGS: There is an impacted fracture of the distal metaphyseal radius. No additional fractures are evident. Posterior angulation of the distal fracture fragment is evident. There is soft tissue swell ing diffusely. IMPRESSION: 1. Transverse fracture distal metaphyseal radius with posterior angulation of the distal fracture fr agment.
[2017-10-28] MEDS ORDERED: ETOMIDATE 2 MG/ML 10 ML VIAL IVP STA (19:53)
[2017-10-28 20:01] VITALS: RESP 18
--- NOTE | 2017-10-28 20:07 | XR ---
EXAMINATION TYPE: XR wrist limited RT DATE OF EXAM: 10/28/2017 COMPARISON: Post trauma imaging same date HISTORY: Fracture distal radius TECHNIQUE: 2 views radius through a fiberglass splint FINDINGS: Distal radial fracture is been reduced. Orientation appears normal. Soft tissue swelling is present. IMPRESSION: 1. Reduction of a transverse metaphyseal distal radial fracture
[2017-10-28 20:15] VITALS: BP 134/63; PULSE 55
== END 2017-10-28 20:38 ==
LOC: EC 17:10
DX: S52.591A Other fractures of lower end of right radius, initial encounter for closed fracture (principal); E11.9 Type 2 diabetes mellitus without complications; K21.9 Gastro-esophageal reflux disease without esophagitis; I10 Essential (primary) hypertension; M19.90 Unspecified osteoarthritis, unspecified site; E07.9 Disorder of thyroid, unspecified; G25.81 Restless legs syndrome; Z88.4 Allergy status to anesthetic agent; Z79.84 Long term (current) use of oral hypoglycemic drugs; Z79.891 Long term (current) use of opiate analgesic; Z79.899 Other long term (current) drug therapy; W10.1XXA Fall (on)(from) sidewalk curb, initial encounter
CPT/HCPCS: 99283; 25605; 99152; 99153; 96374; 96375; 73100; 73110; J2405; J2270

== ENCOUNTER → 2018-02-08 | Outpatient (CLI) | payer MEDICARE ==
--- NOTE | 2018-02-08 15:33 | BD ---
EXAMINATION TYPE: Axial Bone Density DATE OF EXAM: 02/08/2018 COMPARISON: 2014 CLINICAL HISTORY: osteoporosis Height: 5' Weight: 165 FRAX RISK QUESTIONS: History of Fracture in Adulthood: y Secondary Osteoporosis: RISK FACTORS HISTORY OF: Hip Fracture (Right/left): When: 2016 History of Wrist Fracture: rt When: 2018 Surgery to /Hip(right/): When: 2017 Postmenopausal woman: MEDICATIONS: Thyroid Medications: Which medication: Levothyroxine How Lon years Osteoporosis Medications: Which medication: Actonel How Lon years Additional Medications: blood pressure, Additional History: EXAM MEASUREMENTS: Bone mineral densitometry was performed using the [employer]. Bone mineral density as measured about the Lumbar spine is: ----- L1-L4(G/cm2): 1.122 T Score Values are as follows: ----- L2: -1.8 ----- L3: -0.3 ----- L4: 1.1 ----- L1-L4:-0.5 Bone mineral density has: Decreased -1.2% since study of: 03/05/2015 Bone mineral density about the L Wrist (g/cm2): 0.400 T Score values are as follows: -----Dist. R+U: -4.8 -----Prox. R+U: -3.2 -----Radius total: -4.6 IMPRESSION: Osteoporosis about the wrist. NOTE: T-SCORE=SD OF THE YOUNG ADULT MEAN.
--- NOTE | 2018-02-09 10:06 | MM ---
Reason for exam: screening (asymptomatic). Last mammogram was performed 1 year and 2 months ago. History: Patient is postmenopausal and is nulliparous. Physical Findings: A clinical breast exam by your physician is recommended on an annual basis and results should be correlated with mammographic findings. MG 3D Screening Mammo W/Cad Bilateral CC and MLO view(s) were taken. Prior study comparison: December 15, 2016, bilateral MG 3d screening mammo w/cad. October 26, 2015, bilateral MG 3d diag mammo w/cad SHA. There are scattered fibroglandular densities. Finding: There is a 10 mm equal density (isodense), oval mass in the subareolar position of the right breast. ASSESSMENT: Incomplete: need additional imaging evaluation, BI-RAD 0 RECOMMENDATION: Ultrasound of the right breast. [facility] will attempt to contact patient to return for ultrasound.
== END | disposition home or self-care (01) ==
LOC: RADBDWWP 13:11
PROVIDERS: ATTEND Family Medicine
DX: Z12.31 Encounter for screening mammogram for malignant neoplasm of breast (principal); M81.0 Age-related osteoporosis without current pathological fracture
CPT/HCPCS: 77063; 77067; 77080

== ENCOUNTER → 2018-02-10 | Outpatient (CLI) | payer MEDICARE ==
--- NOTE | 2018-02-11 09:45 | USB ---
Reason for exam: additional evaluation requested from abnormal screening. History: Patient is postmenopausal and is nulliparous. Physical Findings: Nurse Summary: states inverted breast a week ago (nurse kp). US Breast Workup Limited RT Right limited breast ultrasound including focal area of concern, retroareolar and axilla demonstrates a three lesions measuring 0.7 x 0.8 x 0.3cm at 10 o'clock, 0.8 x 0.5 x 0.4cm at 11 o'clock and 0.4 x 0.2 x 0.3cm at 12 o'clock that are hypoechoic with echogenic periphery. There is no history of blood thinners. These correspond to the mammographic asymmetries but on further questioning patient reports injury and bruising with a shovel. Small hematomas are suspected. These results were verbally communicated with the patient and result sheet given to the patient on 02/10/18. ASSESSMENT: Probably benign, BI-RAD 3 RECOMMENDATION: Follow-up diagnostic mammogram and ultrasound of the right breast in 1 month. (As the patient is leaving for [place] for 6 months in mid March)
== END | disposition home or self-care (01) ==
LOC: RADUSWWP 15:06
PROVIDERS: ATTEND Family Medicine
DX: R92.8 Other abnormal and inconclusive findings on diagnostic imaging of breast (principal)

== ENCOUNTER → 2018-03-11 | Outpatient (CLI) | payer MEDICARE ==
--- NOTE | 2018-03-11 10:41 | MM ---
Reason for exam: follow-up at short interval from prior study. Last mammogram was performed 1 month ago. History: Patient is postmenopausal and is nulliparous. Physical Findings: Nurse Summary: 1cm nodule in the left breast at 12 o'clock (nurse stephen). MG 3D Diag Mammo W/Cad RT CC and MLO view(s) were taken of the right breast. Prior study comparison: February 08, 2018, bilateral MG 3d screening mammo w/cad. December 15, 2016, bilateral MG 3d screening mammo w/cad. There are scattered fibroglandular densities. There is no discrete abnormality. Nodularity resolved. These results were verbally communicated with the patient and result sheet given to the patient on 03/11/18. ASSESSMENT: Negative, BI-RAD 1 RECOMMENDATION: Return to routine screening mammogram schedule for both breasts. Back on schedule for January 2019.
--- NOTE | 2018-03-11 10:43 | USB ---
Reason for exam: follow-up at short interval from prior study. History: Patient is postmenopausal and is nulliparous. US Breast RT Right complete breast ultrasound includes all four quadrants, the retroareolar region and axilla. Finding demonstrates no cystic or solid lesion seen greater than 0.50cm on current study. These results were verbally communicated with the patient and result sheet given to the patient on 03/11/18. ASSESSMENT: Negative, BI-RAD 1 RECOMMENDATION: Return to routine screening mammogram schedule for both breasts. Back on schedule for January 2019.
== END ==
LOC: RADMAMWWP 08:51
PROVIDERS: ATTEND Family Medicine
DX: R92.8 Other abnormal and inconclusive findings on diagnostic imaging of breast (principal)
CPT/HCPCS: 77065; 76641; G0279; 77061

== ENCOUNTER 2018-12-12 22:37 | Emergency (ER) | payer MEDICARE ==
[2018-12-12 22:41] VITALS: RESP 16
[2018-12-12] MEDS ORDERED: PANTOPRAZOLE 40 MG/10 ML VIAL IVP ONE (22:58)
--- NOTE | 2018-12-12 23:05 | ED ---
General Adult HPI - General Chief complaint: GI Bleed Stated complaint: Poss GI Bleed Time Seen by Provider: 12/12/18 22:44 Source: patient Mode of arrival: ambulatory Limitations: no limitations - History of Present Illness Initial comments: Dictation was produced using [employer] dictation software. please excuse any grammatical, word or spelling errors. Chief Complaint: 73-year-old female presents with black diarrhea History of Present Illness: Patient 73-year-old female presents today with black diarrhea. Patient states she was having black stools starting over the last 72 hours. Today she is concerned because she is having black diarrhea. Patient has had GI bleed in the past. There is been a point where she required blood transfusion. She did receive upper endoscopy however no source of bleeding was discovered. Patient has been feeling some symptoms of anemia. States today that she was going up the stairs when she felt short of breath worse than usual. She has been having intermittent episodes of crampy epigastric pain. She denies any pain symptoms at this time. Patient has history of gastric bypass surgery 25 years ago. The ROS documented in this emergency department record has been reviewed and confirmed by me. Those systems with pertinent positive or negative responses have been documented in the HPI. All other systems are other negative and/or noncontributory. PHYSICAL EXAM: General Impression: Alert and oriented x3, not in acute distress HEENT: Normocephalic atraumatic, extra-ocular movements intact, pupils equal and reactive to light bilaterally, mucous membranes moist. Cardiovascular: Heart regular rate and rhythm, S1&S2 audible, no murmurs, rubs or gallops Chest: Lungs clear to auscultation bilaterally, no rhonchi, no wheeze, no rales Abdomen: Bowel sounds present, abdomen soft, non-tender, non-distended, no organomegaly Musculoskeletal: Pulses present and equal in all extremities, no peripheral edema Motor: no focal deficits noted Neurological: CN II-XII grossly intact, no focal motor or sensory deficits noted Skin: Intact with no visualized rashes Psych: Normal affect and mood Rectal exam: Black stools at the anus, no gross bleeding, no palpable mass or source of bleeding. ED course: 73-year-old female presents with black stools. Vital signs upon arrival are within acceptable limits.Laboratory evaluation obtained. Mild leukocytosis of 13.4, platelet count of 478. Metabolic panel shows bicarb of 18 with a gap of 13. Patient had blood pressure 92/46 after initial blood pressure 146/85. Patient is asymptomatic at this time. Abdomen continues to be soft nontender nondistended. Patient appears comfortable. Patient given 80 mg of IV Protonix. Patient is amenable for discharge. Her hemoglobin is stable and she is asymptomatic and has normal vital signs. Patient given outpatient follow-up to gastroenterology. Patient warned of signs of acute blood loss anemia and she is told to come back to the emergency department if she expresses any feelings of lightheadedness, low blood pressure, tachycardia or feeling weak. Patient is understandable and agreeable to plan. Patient is given prescription for Xanax. She is told to take 40 mg twice a day. - Related Data Home Medications Medication Instructions Recorded Confirmed Levothyroxine Sodium [Levoxyl] 150 mcg PO DAILY 10/26/14 12/12/18 Losartan Potassium 100 mg PO DAILY 10/26/14 12/12/18 Pioglitazone HCl [Actos] 15 mg PO DAILY 10/26/14 12/12/18 Vit No.124/Iron/Folic 1 tab PO HS 10/26/14 12/12/18 [ Vitamin Tablet] Ranitidine HCl [Zantac] 150 mg PO DAILY PRN 10/26/14 12/12/18 Risedronate Sodium [Actonel] 35 mg PO DORANTES 10/26/14 12/12/18 Zolpidem Tartrate [Ambien] 10 mg PO HS 10/26/14 12/12/18 traMADol HCl [Ultram] 50 mg PO TID@1500,1900,2300 10/26/14 12/12/18 Docusate [Colace] 100 mg PO HS 11/07/14 12/12/18 Biotin 10 mg PO HS 10/02/16 12/12/18 Cholecalciferol [Vitamin D3 (25 5,000 unit PO HS 10/02/16 12/12/18 Mcg = 1000 Iu)] Cyanocobalamin [Vitamin B-12] 500 mcg PO HS 10/02/16 12/12/18 Magnesium Oxide 800 mg PO HS 10/02/16 12/12/18 Tart Rose 1 tab PO HS 10/02/16 12/12/18 Wheat Dextrin [Benefiber] 1 pack PO QID 10/02/16 12/12/18 Ascorbic Acid [Vitamin C] 500 mg PO HS 10/28/17 12/12/18 Ferrous Sulfate [Feosol] 325 mg PO HS 10/28/17 12/12/18 Lansoprazole [Prevacid] 30 mg PO DAILY PRN 12/12/18 12/12/18 [place]-3 Fatty Acids/Fish Oil [Fish 1 cap PO HS 12/12/18 12/12/18 Oil 1,000 mg Softgel] Pyridoxine [Vitamin B-6] 50 mg PO HS 12/12/18 12/12/18 Turmeric Root Extract [Turmeric] 500 mg PO HS 12/12/18 12/12/18 Previous Rx's Medication Instructions Recorded Pantoprazole Sodium [Protonix] 40 mg PO BID #30 tablet. 12/13/18 Allergies Allergy/AdvReac Type Severity Reaction Status Date / Time chlorpromazine Allergy Unknown Verified 12/12/18 22:53 [From Thorazine] hydroxyzine [From Vistaril] Allergy Unknown Verified 12/12/18 22:53 metoclopramide [From Reglan] Allergy Unknown Verified 12/12/18 22:53 prochlorperazine Allergy Unknown Verified 12/12/18 22:53 [From Compazine] promethazine [From Phenergan] Allergy Unknown Verified 12/12/18 22:53 trimethobenzamide Allergy Unknown Verified 12/12/18 22:53 [From Tigan] Anesthetics - Amide Type AdvReac MAKES RLS Verified 12/12/18 22:53 FLARE UP Review of Systems ROS Statement: Those systems with pertinent positive or pertinent negative responses have been documented in the HPI. ROS Other: All systems not noted in ROS Statement are negative. Past Medical History Past Medical History: Diabetes Mellitus, GERD/Reflux, Hypertension, Osteoarthritis (OA), Thyroid Disorder Additional Past Medical History / Comment(s): Restless Leg Syndrome (RLS) History of Any Multi-Drug Resistant Organisms: None Reported Past Surgical History: Bariatric Surgery, Joint Replacement, Ventriculoperitoneal Shunt Additional Past Surgical History / Comment(s): GASTRIC BYPASS 1993. (R) Hip replacement 05/12/2016 with revision on 05/20/2016 in [place] Past Anesthesia/Blood Transfusion Reactions: Postoperative Nausea & Vomiting (PONV) Additional Past Anesthesia/Blood Transfusion Reaction / Comment(s): Is related to RLS Past Psychological History: No Psychological Hx Reported Smoking Status: Never smoker Past Alcohol Use History: None Reported Past Drug Use History: None Reported - Past Family History Brother(s) Family Medical History: Coronary Artery Disease (CAD), CVA/TIA, Diabetes Mellitus Father Family Medical History: Coronary Artery Disease (CAD), Diabetes Mellitus, Hypertension Mother Family Medical History: Coronary Artery Disease (CAD), Diabetes Mellitus, Hypertension General Exam Limitations: no limitations Course Vital Signs 12/12/18 12/12/18 22:38 23:35 Temperature 97.4 F L 97.6 F Pulse Rate 88 67 Respiratory 16 16 Rate Blood Pressure 146/85 92/46 O2 Sat by Pulse 97 98 Oximetry Medical Decision Making - Lab Data Result diagrams: 12/12/18 23:11 12/12/18 23:11 Lab Results 12/12/18 12/12/18 12/12/18 Range/Units 23:11 23:11 23:11 WBC 13.4 H (3.8-10.6) k/uL RBC 3.76 L (3.80-5.40) m/uL Hgb 11.2 L (11.4-16.0) gm/dL Hct 34.5 (34.0-46.0) % MCV 91.7 (80.0-100.0) fL MCH 29.9 (25.0-35.0) pg MCHC 32.6 (31.0-37.0) g/dL RDW 13.7 (11.5-15.5) % Plt Count 478 H (150-450) k/uL Neutrophils % 81 % Lymphocytes % 11 % Monocytes % 5 % Eosinophils % 1 % Basophils % 0 % Neutrophils # 10.8 H (1.3-7.7) k/uL Lymphocytes # 1.4 (1.0-4.8) k/uL Monocytes # 0.7 (0-1.0) k/uL Eosinophils # 0.2 (0-0.7) k/uL Basophils # 0.1 (0-0.2) k/uL Sodium 138 (137-145) mmol/L Potassium 4.4 (3.5-5.1) mmol/L Chloride 107 (98-107) mmol/L Carbon Dioxide 18 L (22-30) mmol/L Anion Gap 13 mmol/L BUN 31 H (7-17) mg/dL Creatinine 0.99 (0.52-1.04) mg/dL Est GFR (CKD-EPI)AfAm 65 (>60 ml/min/1.73 sqM) Est GFR (CKD-EPI)NonAf 56 (>60 ml/min/1.73 sqM) Glucose 94 (74-99) mg/dL Calcium 9.5 (8.4-10.2) mg/dL Stool Occult Blood Positive H (Negative) Disposition Clinical Impression: Melena Disposition: HOME SELF-CARE Condition: Good Instructions (If sedation given, give patient instructions): Gastrointestinal Bleeding (ED) Prescriptions: Pantoprazole Sodium [Protonix] 40 mg PO BID #30 tablet.dr Is patient prescribed a controlled substance at d/c from ED?: No Referrals: Gay Garcia MD [STAFF PHYSICIAN] - 1-2 days Frankie Bowers MD [STAFF PHYSICIAN] - 1-2 days Frederic Dhaliwal MD [STAFF PHYSICIAN] - 1-2 days Time of Disposition: 00:08
[2018-12-12 23:23] LABS: Basophils # (A) 0.1 k/uL (0-0.2); Basophils % (A) 0 %; Eosinophils # (A) 0.2 k/uL (0-0.7); Eosinophils % (A) 1 %; HCT 34.5 % (34.0-46.0); HGB 11.2 gm/dL (11.4-16.0); Lymphocytes # (A) 1.4 k/uL (1.0-4.8); Lymphocytes % (A) 11 %; MCH 29.9 pg (25.0-35.0); MCHC 32.6 g/dL (31.0-37.0); MCV 91.7 fL (80.0-100.0); Mean Platelet Volume 6.6; Monocytes # (A) 0.7 k/uL (0-1.0); Monocytes % (A) 5 %; Neutrophils # (A) 10.8 k/uL (1.3-7.7); Neutrophils % (A) 81 %; Platelet Count 478 k/uL (150-450); RBC 3.76 m/uL (3.80-5.40); RDW 13.7 % (11.5-15.5); WBC 13.4 k/uL (3.8-10.6)
[2018-12-12 23:36] VITALS: TEMP 97.6
[2018-12-12 23:36] LABS: Calcium 9.5 mg/dL (8.4-10.2)
[2018-12-12 23:44] LABS: Potassium 4.4 mmol/L (3.5-5.1)
[2018-12-13 00:09] VITALS: BP 116/65; PULSE 60
== END 2018-12-13 00:17 | disposition home or self-care (01) ==
LOC: EC 22:37
DX: K92.1 Melena (principal); R19.7 Diarrhea, unspecified; R10.13 Epigastric pain; R06.02 Shortness of breath; D72.829 Elevated white blood cell count, unspecified; E11.9 Type 2 diabetes mellitus without complications; I10 Essential (primary) hypertension; K21.9 Gastro-esophageal reflux disease without esophagitis; E07.9 Disorder of thyroid, unspecified; M19.90 Unspecified osteoarthritis, unspecified site; Z96.641 Presence of right artificial hip joint; Z98.84 Bariatric surgery status; Z98.890 Other specified postprocedural states; Z79.83 Long term (current) use of bisphosphonates; Z79.84 Long term (current) use of oral hypoglycemic drugs; Z79.891 Long term (current) use of opiate analgesic; Z79.899 Other long term (current) drug therapy; Z88.4 Allergy status to anesthetic agent; Z88.8 Allergy status to other drugs, medicaments and biological substances
CPT/HCPCS: 36415; 86900; 86901; 80048; 85025; 86850; 82272; 99284; 96374; C9113

== ENCOUNTER → 2019-01-19 | Day surgery (SDC) | payer MEDICARE ==
[2019-01-14 15:32] VITALS: BMI 31.1
[~2019-01-19] MED LIST: LACTATED RINGERS 1,000 ML IV SCH; LIDOCAINE 1% 20 ML VIAL (10MG/ML) FOR IV START INTRADERMA ONE; LIDOCAINE 1% INJ 10MG/ML (20 ML MDV) ONE; PROPOFOL 10 MG/ML 20 ML VIAL IV ONE
[2019-01-19 09:52] VITALS: TEMP 97.9
[2019-01-19 10:03] LABS: Glucose,Whole Blood 100 mg/dL (75-99)
--- NOTE | 2019-01-19 10:36 | P.GSHP ---
History of Present Illness H&P Date: 01/19/19 Chief Complaint: GI bleed 3-year-old female referred from Dr. justin. Patient has had issues with GI bleed. She's had previous gastric bypass surgery. Past Medical History Past Medical History: Diabetes Mellitus, GERD/Reflux, GI Bleed, Hypertension, Thyroid Disorder Additional Past Medical History / Comment(s): recent abdominal pain, Restless Leg Syndrome (RLS) History of Any Multi-Drug Resistant Organisms: None Reported Past Surgical History: Bariatric Surgery, Joint Replacement Additional Past Surgical History / Comment(s): GASTRIC BYPASS 1993. left hip replacement, (R) Hip replacement 05/12/2016 [place] on 05/20/[place] Past Anesthesia/Blood Transfusion Reactions: Previous Problems w/ Anesthesia, Postoperative Nausea & Vomiting (PONV) Additional Past Anesthesia/Blood Transfusion Reaction / Comment(s): many anti nausea meds increase Restless leg, Zofran is okay to use Smoking Status: Never smoker - Past Family History Brother(s) Family Medical History: Coronary Artery Disease (CAD), CVA/TIA, Diabetes Mellitus Father Family Medical History: Coronary Artery Disease (CAD), Diabetes Mellitus, Hypertension Mother Family Medical History: Coronary Artery Disease (CAD), Diabetes Mellitus, Hypertension Medications and Allergies Home Medications Medication Instructions Recorded Confirmed Type Levothyroxine Sodium [Levoxyl] 150 mcg PO DAILY 10/26/14 01/19/19 History Losartan Potassium 100 mg PO DAILY 10/26/14 01/19/19 History Pioglitazone HCl [Actos] 15 mg PO DAILY 10/26/14 01/19/19 History Vit No.124/Iron/Folic 1 tab PO HS 10/26/14 01/19/19 History [ Vitamin Tablet] Ranitidine HCl [Zantac] 150 mg PO DAILY PRN 10/26/14 01/19/19 History Risedronate Sodium [Actonel] 35 mg PO DORANTES 10/26/14 01/19/19 History Zolpidem Tartrate [Ambien] 10 mg PO HS 10/26/14 01/19/19 History traMADol HCl [Ultram] 50 mg PO TID@1500,1900,2300 10/26/14 01/19/19 History Docusate [Colace] 100 mg PO HS 11/07/14 01/19/19 History Biotin 10 mg PO HS 10/02/16 01/19/19 History Cholecalciferol [Vitamin D3 (25 5,000 unit PO HS 10/02/16 01/19/19 History Mcg = 1000 Iu)] Cyanocobalamin [Vitamin B-12] 500 mcg PO HS 10/02/16 01/19/19 History Magnesium Oxide 800 mg PO HS 10/02/16 01/19/19 History Tart Rose 1 tab PO HS 10/02/16 01/19/19 History Wheat Dextrin [Benefiber] 1 pack PO QID 10/02/16 01/19/19 History Ascorbic Acid [Vitamin C] 500 mg PO HS 10/28/17 01/19/19 History [place]-3 Fatty Acids/Fish Oil [Fish 1 cap PO HS 12/12/18 01/19/19 History Oil 1,000 mg Softgel] Pyridoxine [Vitamin B-6] 50 mg PO HS 12/12/18 01/19/19 History Pantoprazole Sodium [Protonix] 40 - 80 mg PO DAILY 01/14/19 01/19/19 History Allergies Allergy/AdvReac Type Severity Reaction Status Date / Time chlorpromazine Allergy increased Verified 01/19/19 10:04 [From Thorazine] restless leg hydroxyzine [From Vistaril] Allergy increases Verified 01/19/19 10:04 restless leg metoclopramide [From Reglan] Allergy increases Verified 01/19/19 10:04 restless leg prochlorperazine Allergy increases Verified 01/19/19 10:04 [From Compazine] restless leg promethazine [From Phenergan] Allergy increases Verified 01/19/19 10:04 restless leg trimethobenzamide Allergy increases Verified 01/19/19 10:04 [From Tigan] restless leg Anesthetics - Amide Type AdvReac MAKES RLS Verified 01/19/19 10:04 FLARE UP Surgical - Exam Vital Signs Temp Pulse Resp BP Pulse Ox 97.9 F 69 16 164/70 97 01/19/19 09:51 01/19/19 09:51 01/19/19 09:51 01/19/19 09:51 01/19/19 09:51 - General well developed, well nourished, no distress - Eyes PERRL - ENT normal pinna - Neck no masses - Respiratory normal expansion - Abdomen Abdomen: soft, non tender Results - Labs Abnormal Lab Results - Last 24 Hours (Table) 01/19/19 Range/Units 09:59 POC Glucose (mg/dL) 100 H (75-99) mg/dL Assessment and Plan Assessment: GI bleed. We'll perform EGD.
[2019-01-19 10:46] VITALS: RESP 17
--- NOTE | 2019-01-19 10:46 | P.OP ---
Date of Procedure: 01/19/19 Preoperative Diagnosis: GI bleed Postoperative Diagnosis: Normal EGD status post Kait-en-Y gastric bypass without evidence of inflammation or erosion Procedure(s) Performed: EGD Anesthesia: MAC Surgeon: Louie Vann Pathology: none sent Condition: stable Disposition: PACU Description of Procedure: The patient was placed on the endoscopy table in the lateral position. She received IV sedation. The gastroscope was placed pharynx and passed in the esophagus and into the stomach. The patient a previous gastric bypass. The gastrojejunostomy was just below the GE junction. There is no evidence of any marginal ulcers of the gastrojejunostomy. The general limb of the gastric nausea. Be patent without evidence of inflammation. Scope was then brought back the GE junction was at40 cm. The distal esophagus. Normal. Proximal esophagus normal. There is no evidence of any upper GI bleed or inflammatory changes of the stomach. If patient has any further signs of GI bleed she will need to have colonoscopy.
[2019-01-19 10:53] VITALS: BP 127/64; PULSE 72
== END ==
LOC: ORWHC2ENDO 09:27
PROVIDERS: ATTEND Surgery
DX: K92.2 Gastrointestinal hemorrhage, unspecified (principal); Z98.84 Bariatric surgery status; K21.9 Gastro-esophageal reflux disease without esophagitis; I10 Essential (primary) hypertension; E11.9 Type 2 diabetes mellitus without complications; E07.9 Disorder of thyroid, unspecified; G25.81 Restless legs syndrome; Z79.890 Hormone replacement therapy; Z79.891 Long term (current) use of opiate analgesic; Z79.899 Other long term (current) drug therapy; Z88.8 Allergy status to other drugs, medicaments and biological substances; Z88.4 Allergy status to anesthetic agent; Z96.641 Presence of right artificial hip joint; Z82.49 Family history of ischemic heart disease and other diseases of the circulatory system; Z83.3 Family history of diabetes mellitus; Z82.3 Family history of stroke
CPT/HCPCS: 43235; J2001; J2704; 43239

== ENCOUNTER → 2019-02-03 | Outpatient (CLI) | payer MEDICARE ==
--- NOTE | 2019-02-03 09:19 | NM ---
EXAMINATION TYPE: NM hepatobiliary w EF DATE OF EXAM: 02/03/2019 COMPARISON: NONE HISTORY: Abdominal pain, nausea, and vomiting TECHNIQUE: After the intravenous administration of 5.1 mCi Tc 99m Mebrofenin hepatobiliary scintigrap hy is performed. Immediate images post injection. FINDINGS: There is satisfactory initial accumulation of tracer by the liver. The gallbladder is visualized wit hin 34 minutes. The small bowel activity is noted within 14 minutes. At one hour 8 ounces of oral e nsure plus is given to mimic CCK and gallbladder ejection fraction is calculated at 41 %, in the norm al range. Therefore there is no scintigraphic evidence of cystic or common bile duct obstruction to suggest acute cholecystitis or gallbladder dyskinesia. IMPRESSION: No scintigraphic evidence of acute cholecystitis, chronic cholecystitis, nor biliary dysk inesia.
== END | disposition home or self-care (01) ==
LOC: RADNMMAIN 06:32
PROVIDERS: ATTEND Family Medicine
DX: R10.84 Generalized abdominal pain (principal); R11.0 Nausea; R14.0 Abdominal distension (gaseous)
CPT/HCPCS: 78226; A9537

== ENCOUNTER → 2019-02-14 | Outpatient (CLI) | payer MEDICARE ==
--- NOTE | 2019-02-14 10:03 | US ---
EXAMINATION TYPE: US abdomen complete DATE OF EXAM: 02/14/2019 COMPARISON: NONE CLINICAL HISTORY: 73-year-old female R10.84 Abdominal Pain.. TECHNIQUE: Multiple sonographic images of the abdomen are obtained. FINDINGS: EXAM MEASUREMENTS: Liver Length: 12.6 cm Gallbladder Wall: 0.2 cm CBD: 0.3 cm Spleen: 7.5 cm Right Kidney: 8.2 x 4.4 x 3.5 cm Left Kidney: 8.3 x 4.1 x 3.6 cm Pancreas: Suboptimal visualization secondary to shadowing from bowel gas. Visualized head and neck s how no gross abnormal body. Liver: Slightly coarsened appearance may be on technical basis. No focal lesion. Gallbladder: wnl CBD: wnl Spleen: wnl Right Kidney: wnl Left Kidney: wnl Upper IVC: wnl Abd Aorta: wnl IMPRESSION: 1. Slightly coarsened appearance to the liver may be on technical basis or could reflect nonspecific hepatocellular disease. 2. Suboptimal visualization of the pancreas. Otherwise, unremarkable sonographic examination of the a bdomen.
--- NOTE | 2019-02-15 11:52 | MM ---
Reason for exam: screening (asymptomatic). Last mammogram was performed 11 months ago. History: Patient is postmenopausal and is nulliparous. Physical Findings: A clinical breast exam by your physician is recommended on an annual basis and results should be correlated with mammographic findings. MG 3D Screening Mammo W/Cad Bilateral CC and MLO view(s) were taken. Prior study comparison: March 11, 2018, right breast MG 3d diag mammo w/cad RT. February 08, 2018, bilateral MG 3d screening mammo w/cad. October 26, 2015, bilateral MG 3d diag mammo w/cad [facility]. There are scattered fibroglandular densities. There is no discrete abnormality. ASSESSMENT: Negative, BI-RAD 1 RECOMMENDATION: Routine screening mammogram of both breasts in 1 year.
== END | disposition home or self-care (01) ==
LOC: RADUSWWP 08:31
PROVIDERS: ATTEND Family Medicine
DX: Z12.31 Encounter for screening mammogram for malignant neoplasm of breast (principal); R93.2 Abnormal findings on diagnostic imaging of liver and biliary tract; R10.84 Generalized abdominal pain; R11.0 Nausea; R14.0 Abdominal distension (gaseous)
CPT/HCPCS: 76700; 77063; 77067

== ENCOUNTER → 2020-02-17 | Outpatient (CLI) | payer MEDICARE ==
--- NOTE | 2020-02-20 11:58 | MM ---
Reason for exam: screening (asymptomatic). Last mammogram was performed 1 year ago. History: Patient is postmenopausal and is nulliparous. Physical Findings: A clinical breast exam by your physician is recommended on an annual basis and results should be correlated with mammographic findings. MG 3D Screening Mammo W/Cad Bilateral CC and MLO view(s) were taken. Prior study comparison: February 14, 2019, bilateral MG 3d screening mammo w/cad. March 11, 2018, right breast MG 3d diag mammo w/cad RT. The breast tissue is almost entirely fat. No significant changes when compared with prior studies. ASSESSMENT: Benign, BI-RAD 2 RECOMMENDATION: Routine screening mammogram of both breasts in 1 year.
== END | disposition home or self-care (01) ==
LOC: RADMAMWWP 09:40
PROVIDERS: ATTEND Family Medicine
DX: Z12.31 Encounter for screening mammogram for malignant neoplasm of breast (principal)
CPT/HCPCS: 77063; 77067

== ENCOUNTER → 2020-12-06 | Outpatient (CLI) | payer MEDICARE ==
[2020-12-06 18:44] LABS: Basophils # (A) 0.09 X 10*3/uL (0.00-0.10); Eosinophils # (A) 0.23 X 10*3/uL (0.04-0.35); Eosinophils % (A) 2.4 %; HGB 12.9 g/dL (12.0-15.0); Lymphocytes # (A) 2.11 X 10*3/uL (0.90-5.00); Lymphocytes % (A) 22.3 %; MCH 31.6 pg (27.0-32.0); MCHC 32.3 g/dL (32.0-37.0); Mean Platelet Volume 9.6 fL (9.5-12.2); Monocytes # (A) 0.81 X 10*3/uL (0.20-1.00); Monocytes % (A) 8.6 %; Neutrophils # (A) 6.17 X 10*3/uL (1.80-7.70); Neutrophils % (A) 65.1 %; Platelet Count 400 X 10*3/uL (140-440); RBC 4.08 X 10*6/uL (4.10-5.20); RDW 13.3 % (11.5-14.5); WBC 9.47 X 10*3/uL (4.50-10.00)
[2020-12-06 20:19] LABS: African American GFR (CKD) 82.4 (60.0-200.0); Albumin 4.5 g/dL (3.80-4.90); Albumin/Globulin Ratio 2.05 (1.60-3.17); Anion Gap 9.2 mmol/L (4.00-12.00); BUN/Creat Ratio 32.5 Ratio (12.00-20.00); Calcium 9.6 mg/dL (8.7-10.3); Carbon Dioxide 26.8 mmol/L (21.6-31.8); Chol/HDL Ratio 2.48; Globulin 2.2 g/dL (1.6-3.3); Non-African American GFR(CKD) 71.1 (60.0-200.0); Potassium 4.7 mmol/L (3.5-5.5); Total Bilirubin 0.7 mg/dL (0.3-1.2); Total Protein 6.7 g/dL (6.2-8.2)
[2020-12-06 20:27] LABS: T4, Free (Free Thyroxine) 1.4 ng/dL (0.80-1.80)
[2020-12-06 20:52] LABS: Hemoglobin A1C 4.9 % (4.0-6.0)
== END | disposition home or self-care (01) ==
LOC: LABWHC1 11:46
PROVIDERS: ATTEND Internal Medicine
DX: Z00.01 Encounter for general adult medical examination with abnormal findings (principal); Z13.6 Encounter for screening for cardiovascular disorders; E03.9 Hypothyroidism, unspecified; E11.9 Type 2 diabetes mellitus without complications
CPT/HCPCS: 36415; 80053; 80061; 83036; 84439; 84443; 84480; 85025

== ENCOUNTER → 2021-02-18 | Outpatient (CLI) | payer MEDICARE ==
--- NOTE | 2021-02-19 09:56 | MM ---
Reason for exam: screening (asymptomatic). Last mammogram was performed 1 year ago. History: Patient is postmenopausal and is nulliparous. Took hormonal contraceptives for 6 months. Physical Findings: A clinical breast exam by your physician is recommended on an annual basis and results should be correlated with mammographic findings. MG 3D Screening Mammo W/Cad Bilateral CC and MLO view(s) were taken. Prior study comparison: February 17, 2020, bilateral MG 3d screening mammo w/cad. February 14, 2019, bilateral MG 3d screening mammo w/cad. March 11, 2018, right breast MG 3d diag mammo w/cad RT. There are scattered fibroglandular densities. There is chronic nodularity in the left breast. There is no discrete abnormality. ASSESSMENT: Benign, BI-RAD 2 RECOMMENDATION: Routine screening mammogram of both breasts in 1 year.
== END | disposition home or self-care (01) ==
LOC: RADMAMWWP 09:02
PROVIDERS: ATTEND Internal Medicine
DX: Z12.31 Encounter for screening mammogram for malignant neoplasm of breast (principal); Z78.0 Asymptomatic menopausal state; Z79.3 Long term (current) use of hormonal contraceptives
CPT/HCPCS: 77063; 77067

== ENCOUNTER → 2022-01-28 | Outpatient (CLI) | payer MEDICARE ==
--- NOTE | 2022-01-28 10:58 | US ---
EXAMINATION TYPE: US duplex aorta DATE OF EXAM: 01/28/2022 COMPARISON: NONE CLINICAL HISTORY: R09.89 Z13.6 SCREENING CARDIOVASCULAR DISORDERS. AAA Screening TECHNIQUE: Multiple sonographic images of the abdominal aorta are obtained. FINDINGS: EXAM MEASUREMENTS: Abdominal Aorta: Proximal: 2.1 x 1.8 cm Mid: 1.6 x 1.9 cm Distal: 1.2 x 1.9 cm Bifurcation: REINA: 1.0 x 1.4 cm ROLLY:0.9 x 1.0 cm INCLUSION INTERN NOTES: IMPRESSION: No evidence for aortic aneurysm.
--- NOTE | 2022-01-29 09:08 | US ---
EXAMINATION TYPE: US arterial LE single level DATE OF EXAM: 01/28/2022 10:43 AM CLINICAL HISTORY: R09.89 Z13.6 SCREENING CARDIOVASCULAR DISORDERS. Impalpable pulse in left foot . H istory of hypertension and diabetes. Doppler Waveforms: Right: Biphasic Left: Biphasic Ankle-Brachial Indices: Right: 1.09 Left: 1.14 Toe Brachial Indices: Right: 0.46 Left: 0.50 IMPRESSION: Diminished TBI values bilaterally. At least mild peripheral arterial disease in the bila teral feet. Further workup and follow-up advised.
== END | disposition home or self-care (01) ==
LOC: RADUSWWP 09:19
PROVIDERS: ATTEND Internal Medicine
DX: Z13.6 Encounter for screening for cardiovascular disorders (principal); R09.89 Other specified symptoms and signs involving the circulatory and respiratory systems
CPT/HCPCS: 93922; 93979

== ENCOUNTER → 2022-02-19 | Outpatient (CLI) | payer MEDICARE ==
--- NOTE | 2022-02-19 14:16 | BD ---
EXAMINATION TYPE: Axial Bone Density DATE OF EXAM: 02/19/2022 COMPARISON: 02.08.2018 CLINICAL HISTORY: 76 years year old Female. ICD-10 CODE: Z13.820 SCREENING FOR OSTEOPOROSIS Height: 59IN Weight: 165 FRAX RISK QUESTIONS: History of Fracture in Adulthood: YES Secondary Osteoporosis: RISK FACTORS HISTORY OF: Surgery to Spine/Hip(right/left) SHA HIP REPLACEMENT 2016, 2016 Wrist (right/left): RIGHT WRIST When: 2019 Family History of Osteoporosis: YES Diet low in dairy products/other sources of calcium: YES Postmenopausal woman: YES MEDICATIONS: Thyroid Medications: Which medication: Levothyroxine How Lon YEARS Osteoporosis Medications: Which medication: Actonel How Lon YEARS Additional Medications: BP MED, INHIBITOR FOR DIABETES II, MULTIVITAMIN Additional History: EXAM MEASUREMENTS: Bone mineral densitometry was performed using the [employer] System. Bone mineral density as measured about the Lumbar spine is: ----- L1-L4(G/cm2): 1.194 T Score Values are as follows: ----- L1: -2.0 ----- L2: -1.6 ----- L3: 0.0 ----- L4: 3.1 ----- L1-L4: 0.1 Bone mineral density has: Increased 9.5% since study of: 02.08.2018 Bone mineral density about the L Wrist (g/cm2): 0.401 T Score values are as follows: -----Dist. R+U: -4.0 -----Prox. R+U: -3.3 -----Radius total: -4.4 Bone mineral density has: Decreased -0.8% since study of: 02.08.2018 FRAX%s: The graph provided illustrates a chance for a major osteoporotic fx and a chance for the hips probability for fx in 10 years time. IMPRESSION: Osteoporosis (T Score less than -2.5). There is increased fracture risk and therapy is usually indicated based on age. Re-Screen 1-2 years. NOTE: T-SCORE=SD OF THE YOUNG ADULT MEAN.
--- NOTE | 2022-02-20 08:49 | MM ---
Reason for Exam: Screening (asymptomatic). Last screening mammogram was performed 12 month(s) ago. Patient History: Menarche at age 11. Patient has no children. Postmenopausal. Hormonal Contraceptives for 6 months. Risk Values: Noemy 5 year model risk: 1.9%. NCI Lifetime model risk: 3.4%. Prior Study Comparison: 02/14/2019 Bilateral Screening Mammogram, [facility]. 02/17/2020 Bilateral Screening Mammogram, [facility]. 02/18/2021 Bilateral Screening Mammogram, [facility]. Tissue Density: The breast tissue is almost entirely fat. Findings: Analyzed By CAD. There is no suspicious group of microcalcifications or new suspicious mass in either breast. Overall Assessment: Negative, BI-RAD 1 Management: Screening Mammogram of both breasts in 1 year. A clinical breast exam by your physician is recommended on an annual basis and results should be correlated with mammographic findings. [facility] will attempt to contact patient to return for supplemental views and ultrasound if indicated. Electronically signed and approved by: Freddy Castano DO
== END | disposition home or self-care (01) ==
LOC: RADBDWWP 12:27
PROVIDERS: ATTEND Internal Medicine
DX: Z12.31 Encounter for screening mammogram for malignant neoplasm of breast (principal); M81.0 Age-related osteoporosis without current pathological fracture; Z78.0 Asymptomatic menopausal state
CPT/HCPCS: 77063; 77067; 77080

== ENCOUNTER → 2023-02-13 | Outpatient (CLI) | payer MEDICARE ==
--- NOTE | 2023-02-16 11:33 | US ---
EXAMINATION TYPE: US arterial LE single level DATE OF EXAM: 02/13/2023 2:01 PM CLINICAL INDICATION: Female, 77 years old with history of I73.9 PERIPHERAL VASCULAR DISEASE, UNSPECIF IED; Pt states F/U from prior History of: Smoker: No Hypertension: Yes Diabetic: Yes Hyperlipidemia: No TIA/CVA: No Previous Vascular Surgery: No CAD: No [place]: No Vascular Ulcers: No Claudication: No Gangrene: No Doppler Waveforms: Right: Multiphasic Left: Multiphasic Right Brachial Pressure: 143 Left Brachial Pressure: 144 Ankle-Brachial Indices: Right: 1.0 Left: 1.2 Toe Brachial Indices: Right: 0.5 Left: 0.5 IMPRESSION: No hemodynamically significant stenosis. Ankle-brachial indices within normal limits.
== END | disposition home or self-care (01) ==
LOC: RADUSWWP 13:30
PROVIDERS: ATTEND Internal Medicine
DX: I73.9 Peripheral vascular disease, unspecified (principal); I10 Essential (primary) hypertension; E11.51 Type 2 diabetes mellitus with diabetic peripheral angiopathy without gangrene
CPT/HCPCS: 93922

== ENCOUNTER → 2024-02-22 | Outpatient (CLI) | payer MEDICARE ==
--- NOTE | 2024-02-25 08:03 | MM ---
Reason for Exam: Screening (asymptomatic). Last screening mammogram was performed 12 month(s) ago. Patient History: Menarche at age 11. Patient has no children. Postmenopausal. Hormonal Contraceptives for 6 months. Risk Values: Noemy 5 year model risk: 1.8%. NCI Lifetime model risk: 2.8%. Prior Study Comparison: 02/18/2021 Bilateral Screening Mammogram, [facility]. 02/19/2022 Bilateral MG 3D screening mammo w/cad, [facility]. 02/20/2023 Bilateral MG 3D screening mammo w/cad, [facility]. Tissue Density: There are scattered areas of fibroglandular density. Findings: Analyzed By CAD. There is no suspicious group of microcalcifications or new suspicious mass in either breast. Benign-appearing calcifications. Overall Assessment: Benign, BI-RAD 2 Management: Screening Mammogram of both breasts in 1 year. . Patient should continue monthly self-breast exams. A clinical breast exam by your physician is recommended on an annual basis. This exam should not preclude additional follow-up of suspicious palpable abnormalities. Note on Noemy scores and lifetime risk: 1. A Noemy score greater than 3% is considered moderate risk. If this is the case, consider specialist referral to assess eligibility for a risk reducing agent. 2. If overall lifetime risk for the development of breast cancer is 20% or higher, the patient may qualify for future screening with alternating mammogram and breast MRI. [facility], , 02/25/2024 8:00 AM. Electronically signed and approved by: Maciej Peace M.D. Radiologis
--- NOTE | 2024-02-29 21:24 | BD ---
EXAMINATION TYPE: Axial Bone Density DATE OF EXAM: 02/22/2024 CLINICAL HISTORY: 78 years old Female. ICD-10 CODE: Z13.820 OSTEOPOROSIS Height: 61 Weight: 140 FRAX RISK QUESTIONS: Alcohol (3 or more units per day): no Family History (Parent hip fracture): no Glucocorticoids (More than 3mos): no (Ex: prednisone, prednisolone, methylprednisolone, dexamethasone, and hydrocortisone). History of Fracture in Adulthood: yes Secondary Osteoporosis: 1. Type 1 Diabetes: no 2. Hyperthyroidism: no 3. Menopause before 45: no 4. Malnutrition: no 5. Chronic liver disease: no Rheumatoid Arthritis: no Current Tobacco Use: no RISK FACTORS HISTORY OF: History of Wrist Fracture: right When: 2016 Surgery to Spine/Hip(right/left)/Wrist (right/left): bilateral hip replacements MEDICATIONS: Thyroid Medications: levothyroxine How Lon plus years EXAM MEASUREMENTS: Bone mineral densitometry was performed using the [employer] System. Bone mineral density as measured about the Lumbar spine is: ----- L1-L4(G/cm2): 1.126 T Score Values are as follows: ----- L1: -1.1 ----- L2: -2.2 ----- L3: -0.7 ----- L4: 1.8 ----- L1-L4: -0.5 Z Score Values are as follows: ----- L1: 0.9 ----- L2: -0.3 ----- L3: 1.2 ----- L4: 3.7 ----- L1-L4: 1.4 Bone mineral density has: decreased -5.7 % since study of: 02.19.2022 Bone mineral density about the L Wrist (g/cm2): 0.398 T Score values are as follows: -----Dist. R+U: -4.8 -----Prox. R+U: -3.2 -----Radius total: -4.6 Z Score values are as follows: -----Dist. R+U: -2.0 -----Prox. R+U: -0.4 -----Radius total: -1.8 Bone mineral density has: increased 1.5 % since study of: 02.19.2022 IMPRESSION: Osteoporosis (T Score less than -2.5). There is increased fracture risk and therapy is usually indicated based on age. Re-Screen 1-2 years. NOTE: T-SCORE=SD OF THE YOUNG ADULT MEAN. [facility], , 02/29/2024 9:22 PM
== END | disposition home or self-care (01) ==
LOC: RADMAMWWP 14:46
PROVIDERS: ATTEND Internal Medicine
DX: Z12.31 Encounter for screening mammogram for malignant neoplasm of breast (principal); Z13.820 Encounter for screening for osteoporosis; R92.323 Mammographic fibroglandular density, bilateral breasts; M85.88 Other specified disorders of bone density and structure, other site; Z78.0 Asymptomatic menopausal state
CPT/HCPCS: 77063; 77067; 77080

== ENCOUNTER 2024-12-21 21:08 | Observation (INO) | payer MEDICARE ==
--- NOTE | 2024-12-21 22:37 | ED ---
General Adult HPI - General Chief complaint: ENT Stated complaint: throat is closing up Time Seen by Provider: 12/21/24 22:10 Source: patient, RN notes reviewed Mode of arrival: ambulatory Limitations: no limitations - History of Present Illness Initial comments: 79-year-old female presenting for sensation of throat is closing x 4 hours. States earlier this evening she was feeling some chest discomfort and took 2 aspirin. States about 30 minutes after taking the aspirin she began to experience the sensation that her throat was closing. Reports symptoms have improved however still continues to feel as though her throat is swollen. She is able to breathe and swallow without difficulty. Denies current chest pain or shortness of breath. She does have a history of hypertension and well- controlled diabetes. Denies history of atrial fibrillation. She is not on blood thinners. - Related Data Home Medications Medication Instructions Recorded Confirmed Levothyroxine Sodium [Levoxyl] 150 mcg PO DAILY 10/26/14 01/19/19 Losartan Potassium 100 mg PO DAILY 10/26/14 01/19/19 Pioglitazone HCl [Actos] 15 mg PO DAILY 10/26/14 01/19/19 Vit No.124/Iron/Folic 1 tab PO HS 10/26/14 01/19/19 [ Vitamin Tablet] Ranitidine HCl [Zantac] 150 mg PO DAILY PRN 10/26/14 01/19/19 Risedronate Sodium [Actonel] 35 mg PO DORANTES 10/26/14 01/19/19 Zolpidem Tartrate [Ambien] 10 mg PO HS 10/26/14 01/19/19 traMADol HCl [Ultram] 50 mg PO TID@1500,1900,2300 10/26/14 01/19/19 Docusate [Colace] 100 mg PO HS 11/07/14 01/19/19 Biotin 10 mg PO HS 10/02/16 01/19/19 Cholecalciferol [Vitamin D3 (25 5,000 unit PO HS 10/02/16 01/19/19 Mcg = 1000 Iu)] Cyanocobalamin [Vitamin B-12] 500 mcg PO HS 10/02/16 01/19/19 Magnesium Oxide 800 mg PO HS 10/02/16 01/19/19 Tart Rose 1 tab PO HS 10/02/16 01/19/19 Wheat Dextrin [Benefiber] 1 pack PO QID 10/02/16 01/19/19 Ascorbic Acid [Vitamin C] 500 mg PO HS 10/28/17 01/19/19 [place]-3 Fatty Acids/Fish Oil [Fish 1 cap PO HS 12/12/18 01/19/19 Oil 1,000 mg Softgel] Pyridoxine [Vitamin B-6] 50 mg PO HS 12/12/18 01/19/19 Pantoprazole Sodium [Protonix] 40 - 80 mg PO DAILY 01/14/19 01/19/19 Allergies Allergy/AdvReac Type Severity Reaction Status Date / Time chlorpromazine Allergy increased Verified 12/21/24 21:21 [From Thorazine] restless leg hydroxyzine [From Vistaril] Allergy increases Verified 12/21/24 21:21 restless leg metoclopramide [From Reglan] Allergy increases Verified 12/21/24 21:21 restless leg prochlorperazine Allergy increases Verified 12/21/24 21:21 [From Compazine] restless leg promethazine [From Phenergan] Allergy increases Verified 12/21/24 21:21 restless leg trimethobenzamide Allergy increases Verified 12/21/24 21:21 [From Tigan] restless leg Anesthetics - Amide Type - AdvReac MAKES RLS Verified 12/21/24 21:21 Select A FLARE UP [Anesthetics - Amide Type] Review of Systems ROS Statement: Those systems with pertinent positive or pertinent negative responses have been documented in the HPI. ROS Other: All systems not noted in ROS Statement are negative. Past Medical History Past Medical History: Diabetes Mellitus, GERD/Reflux, GI Bleed, Hypertension, Thyroid Disorder Additional Past Medical History / Comment(s): recent abdominal pain, Restless Leg Syndrome (RLS) History of Any Multi-Drug Resistant Organisms: None Reported Past Surgical History: Bariatric Surgery, Joint Replacement Additional Past Surgical History / Comment(s): GASTRIC BYPASS 1993. left hip replacement, (R) Hip replacement 05/12/2016 with revision on 05/20/2016 in [place] Past Anesthesia/Blood Transfusion Reactions: Previous Problems w/ Anesthesia, Postoperative Nausea & Vomiting (PONV) Additional Past Anesthesia/Blood Transfusion Reaction / Comment(s): many anti nausea meds increase Restless leg, Zofran is okay to use Past Psychological History: No Psychological Hx Reported Smoking Status: Never smoker Past Alcohol Use History: Rare Past Drug Use History: None Reported - Past Family History Brother(s) Family Medical History: Coronary Artery Disease (CAD), CVA/TIA, Diabetes Me llitus Father Family Medical History: Coronary Artery Disease (CAD), Diabetes Mellitus, Hypertension Mother Family Medical History: Coronary Artery Disease (CAD), Diabetes Mellitus, Hypertension General Exam Limitations: no limitations General appearance: alert, in no apparent distress Head exam: Present: atraumatic, normocephalic, normal inspection Eye exam: Present: normal appearance, PERRL, EOMI. Absent: scleral icterus, conjunctival injection, periorbital swelling ENT exam: Present: normal exam, normal oropharynx, mucous membranes moist Neck exam: Present: normal inspection. Absent: tenderness, meningismus, lymphadenopathy Respiratory exam: Present: normal lung sounds bilaterally. Absent: respiratory distress, wheezes, rales, rhonchi, stridor Cardiovascular Exam: Present: tachycardia, irregular rhythm, normal heart sounds. Absent: systolic murmur, diastolic murmur, rubs, gallop, clicks Neurological exam: Present: alert, oriented X3 Psychiatric exam: Present: normal affect, normal mood Skin exam: Present: warm, dry, intact, normal color. Absent: rash Course Vital Signs 12/21/24 12/21/24 12/21/24 21:19 22:36 23:00 Temperature 97.5 F L Pulse Rate 124 H 129 H 112 H Respiratory 18 17 18 Rate Blood Pressure 168/81 165/94 145/82 O2 Sat by Pulse 97 99 99 Oximetry EKG Findings - EKG Results: EKG: interpreted by ERMD (EKG reveals atrial fibrillation with rapid ventricular rate. Ventricular rate 104 bpm, PA interval not calculated, QRS duration 86, QT/QTc 306/366) Medical Decision Making - Medical Decision Making Was pt. sent in by a medical professional or institution (, PA, DIRECTOR PATIENT FINANCIAL SERVICES, urgent care, hospital, or fdc...) When possible be specific @ -No Did you speak to anyone other than the patient for history (EMS, parent, family, police, friend...)? What history was obtained from this source @ -No Did you review nursing and triage notes (agree or disagree)? Why? @ -I reviewed and agree with nursing and triage notes Were old charts reviewed (outside hosp., previous admission, EMS record, old EKG, old radiological studies, urgent care reports/EKG's, fdc records)? Report findings @ -No old charts were reviewed Differential Diagnosis (chest pain, altered mental status, abdominal pain women, abdominal pain men, vaginal bleeding, weakness, fever, dyspnea, syncope, headache, dizziness, GI bleed, back pain, seizure, CVA, palpatations, mental health, musculoskeletal)? @ -Differential Chest Pain: Allergic reaction, atrial fibrillation, stable Angina, Unstable Angina, STEMI, NSTEMI Aortic Dissection, Pneumothorax, Musculoskeletal, Esophageal Spasm GERD, Cholecystitis, Pancreatitis, Zoster, this is not meant to be an all-inclusive list. EKG interpreted by me (3pts min.). @ -As above X-rays interpreted by me (1pt min.). @ -Chest x-ray interpreted by me reveals no acute process CT interpreted by me (1pt min.). @ -None done U/S interpreted by me (1pt. min.). @ -None done What testing was considered but not performed or refused? (CT, X-rays, U/S, labs)? Why? @ -None What meds were considered but not given or refused? Why? @ -None Did you discuss the management of the patient with other professionals (professionals i.e. , PA, DIRECTOR PATIENT FINANCIAL SERVICES, lab, RT, psych nurse, social welfare research worker, journeyman tool and die maker, teacher, correction officer head, case manager specialist)? Give summary @ -Case was discussed with Dr. Howe verbally in the emergency department who accepts admission Was smoking cessation discussed for >3mins.? @ -No Was critical care preformed (if so, how long)? @ -Yes, 45 minutes Were there social determinants of health that impacted care today? How? (Homelessness, low income, unemployed, alcoholism, drug addiction, transporta tion, low edu. Level, literacy, decrease access to med. care, senior living, rehab)? @ -No Was there de-escalation of care discussed even if they declined (Discuss DNR or withdrawal of care, Hospice)? DNR status @ -No What co-morbidities impacted this encounter? (DM, HTN, Smoking, COPD, CAD, Cancer, CVA, ARF, Chemo, Hep., AIDS, mental health diagnosis, sleep apnea, morbid obesity)? @ -None Was patient admitted / discharged? Hospital course, mention meds given and route, prescriptions, significant lab abnormalities, going to OR and other pertinent info. @ -Admitted. 79-year-old female presenting for sensation of throat swelling x 4 hours with heart palpitations. No difficulty breathing or swallowing at this time. Upon evaluation patient is found to be in new onset atrial fibrillation with RVR. Patient is not currently on anticoagulation. Heart rate is in the 110s to 120s therefore decided to hold off on antiarrhythmics at this time. Patient was started on IV heparin. Troponin undetectable. Patient will be admitted to medicine with cardiology consultation. Case was discussed in detail with my ED attending Dr. Martinez. Undiagnosed new problem with uncertain prognosis? @ -No Drug Therapy requiring intensive monitoring for toxicity (Heparin, Nitro, Insulin, Cardizem)? @ -No Were any procedures done? @ -No Diagnosis/symptom? @ -Yes, atrial fibrillation with RVR Acute, or Chronic, or Acute on Chronic? @ -Acute Uncomplicated (without systemic symptoms) or Complicated (systemic symptoms)? @ -Complicated Side effects of treatment? @ -No Exacerbation, Progression, or Severe Exacerbation? @ -No Poses a threat to life or bodily function? How? (Chest pain, [place], [place], pneumonia, PE, COPD, DKA, ARF, appy, cholecystitis, CVA, Diverticulitis, Homicidal, Suicidal, threat to staff... and all critical care pts) @ -Yes - Lab Data Result diagrams: 12/21/24 22:42 12/21/24 22:42 Lab Results 12/21/24 12/21/24 12/21/24 Range/Units 22:42 22:42 22:42 WBC 10.52 H (4.50-10.00) 10*3/uL RBC 3.82 L (4.10-5.20) 10*6/uL Hgb 11.9 L (12.0-15.0) g/dL Hct 36.1 L (37.2-46.3) % MCV 94.5 (80.0-97.0) fL MCH 31.2 (27.0-32.0) pg MCHC 33.0 (32.0-37.0) g/dL Plt Count 407 (140-440) 10*3/uL MPV 9.1 L (9.5-12.2) fL Immature Gran % (Auto) 0.4 % Neutrophils % 66.2 % Lymphocytes % 20.7 % Monocytes % 9.9 % Eosinophils % 1.9 % Basophils % 0.9 % Immature Gran # 0.04 (0.00-0.04) 10*3/uL Neutrophils # 6.97 (1.80-7.70) 10*3/uL Lymphocytes # 2.18 (0.90-5.00) 10*3/uL Monocytes # 1.04 H (0.20-1.00) 10*3/uL Eosinophils # 0.20 (0.04-0.35) 10*3/uL Basophils # 0.09 (0.00-0.10) 10*3/uL PT 9.7 L (10.0-12.5) sec INR 0.8 (<1.2) APTT 22.8 (22.0-30.0) sec Sodium 139 (137-145) mmol/L Potassium 4.3 (3.5-5.1) mmol/L Chloride 103 (98-107) mmol/L Carbon Dioxide 25 (22-30) mmol/L Anion Gap 11 mmol/L BUN 22 H (7-17) mg/dL Creatinine 0.63 (0.52-1.04) mg/dL Est GFR (CKD-EPI)AfAm >90 (>60 ml/min/1.73 sqM) Est GFR (CKD-EPI)NonAf 84 (>60 ml/min/1.73 sqM) Glucose 82 (74-99) mg/dL Calcium 10.2 (8.4-10.2) mg/dL Magnesium 1.9 (1.6-2.3) mg/dL Total Bilirubin 0.4 (0.2-1.3) mg/dL AST 34 (14-36) U/L ALT 34 (4-34) U/L Alkaline Phosphatase 86 (38-126) U/L Total Protein 6.8 (6.3-8.2) g/dL Albumin 4.4 (3.5-5.0) g/dL Disposition Clinical Impression: New onset atrial fibrillation Disposition: ADMITTED IP TO THIS HOSP Referrals: Judy Walker MD [Primary Care Provider] - 1-2 days Time of Disposition: 23:36
[2024-12-21 23:10] LABS: Basophils # (A) 0.09 10*3/uL (0.00-0.10); Basophils % (A) 0.9 %; Eosinophils # (A) 0.20 10*3/uL (0.04-0.35); Eosinophils % (A) 1.9 %; HCT 36.1 % (37.2-46.3); HGB 11.9 g/dL (12.0-15.0); Lymphocytes # (A) 2.18 10*3/uL (0.90-5.00); Lymphocytes % (A) 20.7 %; MCH 31.2 pg (27.0-32.0); MCHC 33.0 g/dL (32.0-37.0); MCV 94.5 fL (80.0-97.0); Monocytes # (A) 1.04 10*3/uL (0.20-1.00); Monocytes % (A) 9.9 %; Neutrophils # (A) 6.97 10*3/uL (1.80-7.70); Neutrophils % (A) 66.2 %; Platelet Count 407 10*3/uL (140-440); RBC 3.82 10*6/uL (4.10-5.20); RDW 13.8 % (11.5-14.5); WBC 10.52 10*3/uL (4.50-10.00)
[2024-12-21 23:21] LABS: ALT 34 U/L (4-34); AST 34 U/L (14-36); African American GFR (CKD) >90 (>60 ml/min/1.73 sqM); Albumin 4.4 g/dL (3.5-5.0); Alkaline Phosphatase 86 U/L (38-126); Anion Gap 11 mmol/L; Blood Urea Nitrogen 22 mg/dL (7-17); Calcium 10.2 mg/dL (8.4-10.2); Carbon Dioxide 25 mmol/L (22-30); Chloride 103 mmol/L (98-107); Glucose 82 mg/dL (74-99); Magnesium 1.9 mg/dL (1.6-2.3); Non-African American GFR(CKD) 84 (>60 ml/min/1.73 sqM); Potassium 4.3 mmol/L (3.5-5.1); Sodium 139 mmol/L (137-145); Total Protein 6.8 g/dL (6.3-8.2)
[2024-12-21 23:29] LABS: INR 0.8 (<1.2); Prothrombin Time 9.7 sec (10.0-12.5)
[2024-12-21 23:30] LABS: Partial Thromboplastin Time 22.8 sec (22.0-30.0)
[2024-12-21] MEDS: HEPARIN SODIUM 1,000 UN/ML (10ML VL) IV ONE (23:32)
[2024-12-21] MEDS: HEPARIN SOD,PORK IN 0.45% NACL 25,000 UNIT in 0.45% NACL 1 250ML.BAG IV SCH (23:33)
[2024-12-21] MEDS ORDERED: ACETAMINOPHEN TAB 325 MG TAB PO PRN (23:36)
[2024-12-21] MEDS ORDERED: NALOXONE 0.4 MG/ML 1 ML VIAL IV PRN (23:36)
--- NOTE | 2024-12-22 00:09 | XR ---
EXAM: XR Chest, 2 Views CLINICAL HISTORY: XR Reason: new onset AFib with RVR TECHNIQUE: Frontal and lateral views of the chest. COMPARISON: 10/02/2016 FINDINGS: Lungs: Slight central vascular prominence without overt edema or acute focal infiltrate. Pleural space: Unremarkable. No pneumothorax. Heart: The cardiac silhouette is borderline enlarged. Mediastinum: Unremarkable. Normal mediastinal contour. Bones/joints: Mild multilevel osteophytosis throughout the thoracic spine. No acute fracture or bone lesion is identified. Vasculature: The aortic arch is mildly calcified. IMPRESSION: 1. The cardiac silhouette is borderline enlarged. 2. Slight central vascular prominence without overt edema or acute focal infiltrate.
[2024-12-22 02:34] VITALS: RESP 17
[2024-12-22] MEDS: HEPARIN SODIUM 1,000 UN/ML (10ML VL) IV PRN (06:13)
[2024-12-22] MEDS ORDERED: DEXTROSE 50% SYRINGE 50 ML IVP PRN ×2 (07:16)
--- NOTE | 2024-12-22 07:16 | P.HPIM ---
History of Present Illness H&P Date: 12/21/24 Chief Complaint: Throat swelling 79-year-old female with hypertension, diabetes mellitus, GERD Patient presents with new onset atrial fibrillation and throat congestion. erlinda burton reports feeling like throat is "locking up" and describes throat swelling. This is patient's first episode of atrial fibrillation. Patient reports heart racing sensation. Patient denies chest pain or trouble breathing. Denies any dizziness lightheadedness denies any nausea vomiting. She denies any recent travel or hospital stay denies any history of cancer or blood clots Throat locking sensation is currently resolved she denies any associated difficulty swallowing or breathing Patient denies tobacco smoking illicit drugs or heavy alcohol Review of systems All systems reviewed with pertinent positive negatives as per HPI on exam Constitutional: No acute distress, conversant, pleasant Eyes: Anicteric sclerae, moist conjunctiva, Pupils equal round reactive to light ENMT: NC/AT Oropharynx clear, no erythema, or exudates Neck: Supple, no masses, or JVD No carotid bruits No thyromegaly Lungs: Clear to auscultation Clear to percussion Normal respiratory effort, no accessory muscle use Cardiovascular: Heart irregular in rate and rhythm, No murmurs, gallops, or rubs No peripheral edema Abdominal: Soft Nontender, no guarding, rebound or rigidity Abdomen moving with respiration Extremities: No digital cyanosis No clubbing Pedal pulses intact and symmetrical Radial pulses intact and symmetrical No calf tenderness Psychiatric: Alert and oriented to person, place and time Appropriate affect fair judgement Neuro Muscles Strength 5/5 in all 4 extremities Sensation to light touch grossly present throughout Cranial nerves II-XII grossly intact Past Medical History Past Medical History: Diabetes Mellitus, GERD/Reflux, GI Bleed, Hypertension, Thyroid Disorder Additional Past Medical History / Comment(s): recent abdominal pain, Restless Leg Syndrome (RLS), GI bleed w/ asprin & NSAIDs, restless leg syndrom History of Any Multi-Drug Resistant Organisms: None Reported Past Surgical History: Bariatric Surgery, Joint Replacement Additional Past Surgical History / Comment(s): GASTRIC BYPASS 1993. left hip replacement, (R) Hip replacement 05/12/2016 with revision on 05/20/[address] [place],. droop eye surgery november 2024, right wrist repair surgery Past Anesthesia/Blood Transfusion Reactions: Previous Problems w/ Anesthesia, Postoperative Nausea & Vomiting (PONV) Additional Past Anesthesia/Blood Transfusion Reaction / Comment(s): many anti nausea meds increase Restless leg, Zofran is okay to use Smoking Status: Never smoker - Past Family History Brother(s) Family Medical History: Coronary Artery Disease (CAD), CVA/TIA, Diabetes Mellitus Father Family Medical History: Coronary Artery Disease (CAD), Diabetes Mellitus, Hypertension Mother Family Medical History: Coronary Artery Disease (CAD), Diabetes Mellitus, Hypertension, Myocardial Infarction (HI) Additional Family Medical History / Comment(s): clot in her heart Medications and Allergies Home Medications Medication Instructions Recorded Confirmed Type Levothyroxine Sodium [Levoxyl] 150 mcg PO DAILY 10/26/14 01/19/19 History Losartan Potassium 100 mg PO DAILY 10/26/14 01/19/19 History Pioglitazone HCl [Actos] 15 mg PO DAILY 10/26/14 01/19/19 History Vit No.124/Iron/Folic 1 tab PO HS 10/26/14 01/19/19 History [ Vitamin Tablet] Ranitidine HCl [Zantac] 150 mg PO DAILY PRN 10/26/14 01/19/19 History Risedronate Sodium [Actonel] 35 mg PO DORANTES 10/26/14 01/19/19 History Zolpidem Tartrate [Ambien] 10 mg PO HS 10/26/14 01/19/19 History traMADol HCl [Ultram] 50 mg PO TID@1500,1900,2300 10/26/14 01/19/19 History Docusate [Colace] 100 mg PO HS 11/07/14 01/19/19 History Biotin 10 mg PO HS 10/02/16 01/19/19 History Cholecalciferol [Vitamin D3 (25 5,000 unit PO HS 10/02/16 01/19/19 History Mcg = 1000 Iu)] Cyanocobalamin [Vitamin B-12] 500 mcg PO HS 10/02/16 01/19/19 History Magnesium Oxide 800 mg PO HS 10/02/16 01/19/19 History Tart Rose 1 tab PO HS 10/02/16 01/19/19 History Wheat Dextrin [Benefiber] 1 pack PO QID 10/02/16 01/19/19 History Ascorbic Acid [Vitamin C] 500 mg PO HS 10/28/17 01/19/19 History [place]-3 Fatty Acids/Fish Oil [Fish 1 cap PO HS 12/12/18 01/19/19 History Oil 1,000 mg Softgel] Pyridoxine [Vitamin B-6] 50 mg PO HS 12/12/18 01/19/19 History Pantoprazole Sodium [Protonix] 40 - 80 mg PO DAILY 01/14/19 01/19/19 History Allergies Allergy/AdvReac Type Severity Reaction Status Date / Time chlorpromazine Allergy increased Verified 12/21/24 21:21 [From Thorazine] restless leg hydroxyzine [From Vistaril] Allergy increases Verified 12/21/24 21:21 restless leg metoclopramide [From Reglan] Allergy increases Verified 12/21/24 21:21 restless leg prochlorperazine Allergy increases Verified 12/21/24 21:21 [From Compazine] restless leg promethazine [From Phenergan] Allergy increases Verified 12/21/24 21:21 restless leg trimethobenzamide Allergy increases Verified 12/21/24 21:21 [From Tigan] restless leg Anesthetics - Amide Type - AdvReac MAKES RLS Verified 12/21/24 21:21 Select A FLARE UP [Anesthetics - Amide Type] Physical Exam Vitals: Vital Signs Temp Pulse Pulse Pulse Resp BP BP 12/22/24 02:00 97.4 F L 104 H 17 153/81 12/22/24 01:39 98.2 F 98 16 118/74 12/22/24 00:00 105 H 18 139/87 12/21/24 23:38 114 H 16 154/107 12/21/24 23:00 112 H 18 145/82 12/21/24 22:36 129 H 125 H 17 165/94 12/21/24 21:19 97.5 F L 124 H 18 168/81 Pulse Ox 12/22/24 02:00 98 12/22/24 01:39 98 12/22/24 00:00 99 12/21/24 23:38 99 12/21/24 23:00 99 12/21/24 22:36 99 12/21/24 21:19 97 Intake and Output 12/21/24 12/22/24 12/22/24 22:59 06:59 14:59 Intake Total 46.563 Balance 46.563 Intake: Intake, IV Titration 46.563 Amount Heparin Sod,Pork in 0.45% 46.563 NaCl 25,000 unit In 0.45 % NaCl 1 250ml.bag @ 12 UNITS/KG/HR 6.967 mls/hr IV .Q24H [facility] Rx#: [id number] Other: # Voids 1 Weight 58.06 kg 58.06 kg Results CBC & Chem 7: 12/21/24 22:42 12/21/24 22:42 Labs: Abnormal Lab Results - Last 24 Hours (Table) 12/21/24 12/21/24 12/21/24 Range/Units 22:42 22:42 22:42 WBC 10.52 H (4.50-10.00) 10*3/uL RBC 3.82 L (4.10-5.20) 10*6/uL Hgb 11.9 L (12.0-15.0) g/dL Hct 36.1 L (37.2-46.3) % MPV 9.1 L (9.5-12.2) fL Monocytes # 1.04 H (0.20-1.00) 10*3/uL PT 9.7 L (10.0-12.5) sec BUN 22 H (7-17) mg/dL Thrombosis Risk Factor Assmnt - Choose All That Apply Any of the Below Risk Factors Present?: No Other Risk Factors: No Each Risk Factor Represents 3 Points: Age 75 years or older Thrombosis Risk Factor Assessment Total Risk Factor Score: 3 Thrombosis Risk Factor Assessment Level: Very Low Risk Assessment and Plan Assessment: Patient with new onset atrial fibrillation presenting with a feeling of throat swelling and palpitations. 1. New onset atrial fibrillation: - First episode of A-fib with associated palpitations - Plan: a) Control heart rate b) Consider rhythm conversion c) Assess stroke risk d) Likely will need blood thinner therapy continue with heparin gtt dosing by pharmacy cardizem was not started as her heart rate slowed down on its own , still in out of afib check echocardiogram cardiology consult Check TSH Electrolytes unremarkable with magnesium 1.9 potassium 4.3 Troponin negative continue to trend 2. Throat swelling:, Currently resolved - Patient reports throat swelling with sensation of "locking up" Chronic conditions Diabetes mellitus, insulin sliding scale Hypertension resume losartan Hypothyroid continue with levothyroxine DVT prophylaxis on heparin drip CODE STATUS full code GI prophylaxis Protonix 40 mg p.o. daily
[2024-12-22 08:20] LABS: Glucose,Whole Blood 84 mg/dL (70-110)
[2024-12-22] MEDS: INSULIN LISPRO (HumaLOG) 100 UNIT/ML 10 mL VL SQ SCH (08:36)
[2024-12-22] MEDS: LEVOTHYROXINE 75 MCG TAB PO SCH (08:39)
[2024-12-22] MEDS: LOSARTAN 50 MG TAB PO SCH (08:40)
[2024-12-22] MEDS: PANTOPRAZOLE 40 MG TABLET PO SCH (08:40)
[2024-12-22] MEDS: APIXABAN 2.5 MG TABLET PO SCH (11:07)
[2024-12-22] MEDS: METOPROLOL SUCCINATE (ER) 25 MG TAB.ER.24H PO SCH (11:08)
[2024-12-22 12:01] LABS: Glucose,Whole Blood 80 mg/dL (70-110)
--- NOTE | 2024-12-22 12:04 | P.CRDCN ---
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 She has a past medical history of GERD, hypothyroidism, diabetes mellitus type 2. We have been asked to evaluate patient for new onset of atrial fibrillation. Patient states that she started feeling her throat was swelling up and also some chest heaviness yesterday. Mike ng with this she had some difficulty breathing. She took 2 aspirin the chest heaviness. She denies history of atrial fibrillation. Patient was found to be in atrial fibrillation and started on a heparin drip. Patient did convert to sinus rhythm around 2 AM. Regarding diabetes, patient states her A1c is 4.8. She denies any chest pain or chest pressure at this time. No lightheadedness or dizziness. No shortness of breath. She does give history that she has had a stomach bleed in the past due to NSAIDs. She does take Protonix as needed and recommended that she take it every day for 14 days once she starts Eliquis. Blood pressure 68, heart rate 69, pulse ox 97% on room air. Telemetry is a sinus rhythm. -EKG: Atrial fibrillation at 104 bpm, nonspecific T wave changes present on pre vious EKG. -Chest x-ray: Cardiac silhouette is borderline enlarged. Slight central vascular prominence without overt edema or acute focal infiltrate. -Laboratory studies: WBC 10.5, hemoglobin 1.9, electrolytes are normal. BUN 22 creatinine 0.63. Magnesium 1.9. Troponin negative x 3. TSH 0.065. -Home cardiac medications: Losartan 100 mg daily, also on levothyroxine. -Echocardiogram performed in 2017 revealed EF of 55 to 60%, trace mitral regurgitation, trace tricuspid regurgitation. Review Of Systems: At the time of my exam: CONSTITUTIONAL: Denies fever or chills. HEENT: Denies blurred vision, vision changes, or eye pain. Denies hemoptysis CARDIOVASCULAR: Denies chest pain. Denies orthopnea. Denies PND. Denies palpitations RESPIRATORY: Denies shortness of breath. GASTROINTESTINAL: Denies abdominal pain. Denies nausea or vomiting. HEMATOLOGIC: Denies bleeding disorders. GENITOURINARY: Denies any blood in urine. SKIN: Denies puritis. Denies rash. Physical examination: Gen: This is an 79-year-old female in no acute distress. VS: reviewed HEENT: Head is atraumatic, normocephalic. Pupils equal, round. Sclerae is anicteric. NECK: Supple. No JVD. LUNGS: Clear to auscultation. No wheezes or rhonchi. No intercostal retractions. HEART: Regular rate and rhythm. No murmur. ABDOMEN: Soft No tenderness. EXTREMITIES: No pedal edema. No calf tenderness. NEUROLOGICAL: Patient is awake, alert and oriented x3. Assessment: New onset paroxysmal atrial fibrillation, currently in sinus rhythm Throat swelling sensation and dysphagia GERD Diabetes mellitus type 2 Hypothyroidism with abnormal TSH, admitting team to address Plan: Resume patient's home cardiac medications Recommend taking Protonix every day for 14 days Discontinue heparin drip and start patient on Eliquis 2.5 mg twice daily Start patient on metoprolol succinate 25 mg daily Obtain speech therapy evaluation Obtain 2-D echocardiogram and Doppler study to assess cardiac structure and function Further recommendations to follow based upon clinical course Thank you kindly for this consultation. Nurse practitioner note has been reviewed, I agree with documented findings and plan of care. Patient was seen and examined. Past Medical History Past Medical History: Diabetes Mellitus, GERD/Reflux, GI Bleed, Hypertension, Thyroid Disorder Additional Past Medical History / Comment(s): recent abdominal pain, Restless Leg Syndrome (RLS), GI bleed w/ asprin & NSAIDs, restless leg syndrom History of Any Multi-Drug Resistant Organisms: None Reported Past Surgical History: Bariatric Surgery, Joint Replacement Additional Past Surgical History / Comment(s): GASTRIC BYPASS 1993. left hip replacement, (R) Hip replacement 05/12/2016 with revision on 05/20/2016 in [place],. droop eye surgery november 2024, right wrist repair surgery Past Anesthesia/Blood Transfusion Reactions: Previous Problems w/ Anesthesia, Postoperative Nausea & Vomiting (PONV) Additional Past Anesthesia/Blood Transfusion Reaction / Comment(s): many anti nausea meds increase Restless leg, Zofran is okay to use Smoking Status: Never smoker - Past Family History Brother(s) Family Medical History: Coronary Artery Disease (CAD), CVA/TIA, Diabetes Mellitus Father Family Medical History: Coronary Artery Disease (CAD), Diabetes Mellitus, Hypertension Mother Family Medical History: Coronary Artery Disease (CAD), Diabetes Mellitus, Hypertension, Myocardial Infarction ([place]) Additional Family Medical History / Comment(s): clot in her heart Medications and Allergies Home Medications Medication Instructions Recorded Confirmed Type Losartan Potassium 100 mg PO DAILY 10/26/14 12/22/24 History Pioglitazone HCl [Actos] 15 mg PO DAILY 10/26/14 12/22/24 History Risedronate Sodium [Actonel] 35 mg PO DORANTES 10/26/14 12/22/24 History Zolpidem Tartrate [Ambien] 10 mg PO HS 10/26/14 12/22/24 History traMADol HCl [Ultram] 50 mg PO TID@0000,1700,199910/26/14 12/22/24 History Docusate [Colace] 200 mg PO HS 11/07/14 12/22/24 History Biotin 10 mg PO HS 10/02/16 12/22/24 History Magnesium Oxide 1,200 mg PO HS 10/02/16 12/22/24 History Pantoprazole Sodium [Protonix] 40 mg PO DAILY PRN 01/14/19 12/22/24 History Aloe Cure Digestive Supplement 1 tab PO BID 12/22/24 12/22/24 History Cholecalciferol [Vitamin D3 (125 125 mcg PO DAILY 12/22/24 12/22/24 History Mcg = 5000 Iu)] Cyanocobalamin (Vitamin B-12) 1,000 mcg PO HS 12/22/24 12/22/24 History [Vitamin B-12] Dicyclomine [Bentyl] 20 mg PO TID PRN 12/22/24 12/22/24 History Ferrous Sulfate [Feosol] 325 mg PO 12/22/24 12/22/24 History Hyoscyamine Sulfate [Levsin] 0.125 mg PO TID PRN 12/22/24 12/22/24 History Lansoprazole 30 mg PO HS 12/22/24 12/22/24 History Levothyroxine Sodium [Synthroid] 125 mcg PO DAILY 12/22/24 12/22/24 History Milk Thistle Sd Ext/Blessed Th 1 cap PO 12/22/24 12/22/24 History [Milk Thistle 175-120 mg Cap] Niacin 500 mg PO DAILY 12/22/24 12/22/24 History Vit No.180/Iron/Folic 1 tab PO HS 12/22/24 12/22/24 History [ Plus Tablet] Semaglutide [Ozempic] 2 mg SQ DORANTES 12/22/24 12/22/24 History Silver Sulfadiazine [Silver 1 applic TOPICAL DAILY 12/22/24 12/22/24 History Sulfadiazine 1%] Sucralfate [Carafate] 1 gm PO TID PRN 12/22/24 12/22/24 History Allergies Allergy/AdvReac Type Severity Reaction Status Date / Time chlorpromazine Allergy increased Verified 12/22/24 08:59 [From Thorazine] restless leg hydroxyzine [From Vistaril] Allergy increases Verified 12/22/24 08:59 restless leg metoclopramide [From Reglan] Allergy increases Verified 12/22/24 08:59 restless leg prochlorperazine Allergy increases Verified 12/22/24 08:59 [From Compazine] restless leg promethazine [From Phenergan] Allergy increases Verified 12/22/24 08:59 restless leg trimethobenzamide Allergy increases Verified 12/22/24 08:59 [From Tigan] restless leg Anesthetics - Amide Type - AdvReac MAKES RLS Verified 12/22/24 08:59 Select A FLARE UP [Anesthetics - Amide Type] Physical Exam Vitals: Vital Signs Temp Pulse Pulse Pulse Resp BP BP 12/22/24 07:09 98.0 F 69 17 121/68 12/22/24 02:00 97.4 F L 104 H 17 153/81 12/22/24 01:39 98.2 F 98 16 118/74 12/22/24 00:00 105 H 18 139/87 12/21/24 23:38 114 H 16 154/107 12/21/24 23:00 112 H 18 145/82 12/21/24 22:36 129 H 125 H 17 165/94 12/21/24 21:19 97.5 F L 124 H 18 168/81 Pulse Ox 12/22/24 07:09 97 12/22/24 02:00 98 12/22/24 01:39 98 12/22/24 00:00 99 12/21/24 23:38 99 12/21/24 23:00 99 12/21/24 22:36 99 12/21/24 21:19 97 Intake and Output 12/21/24 12/22/24 12/22/24 22:59 06:59 14:59 Intake Total 46.563 Balance 46.563 Intake: Intake, IV Titration 46.563 Amount Heparin Sod,Pork in 0.45% 46.563 NaCl 25,000 unit In 0.45 % NaCl 1 250ml.bag @ 12 UNITS/KG/HR 6.967 mls/hr IV .Q24H [facility] Rx#: [id number] Other: # Voids 1 Weight 58.06 kg 58.06 kg Results 12/21/24 22:42 12/21/24 22:42 Cardiac Enzymes 12/21/24 12/21/24 12/22/24 Range/Units 22:42 22:42 03:37 AST 34 (14-36) U/L Troponin I <0.012 <0.012 (0.000-0.034) ng/mL 12/22/24 Range/Units 05:23 AST (14-36) U/L Troponin I <0.012 (0.000-0.034) ng/mL Coagulation 12/21/24 12/22/24 Range/Units 22:42 05:23 PT 9.7 L (10.0-12.5) sec APTT 22.8 29.4 (22.0-30.0) sec CBC 12/21/24 Range/Units 22:42 WBC 10.52 H (4.50-10.00) 10*3/uL RBC 3.82 L (4.10-5.20) 10*6/uL Hgb 11.9 L (12.0-15.0) g/dL Hct 36.1 L (37.2-46.3) % Plt Count 407 (140-440) 10*3/uL Comprehensive Metabolic Panel 12/21/24 Range/Units 22:42 Sodium 139 (137-145) mmol/L Potassium 4.3 (3.5-5.1) mmol/L Chloride 103 (98-107) mmol/L Carbon Dioxide 25 (22-30) mmol/L BUN 22 H (7-17) mg/dL Creatinine 0.63 (0.52-1.04) mg/dL Glucose 82 (74-99) mg/dL Calcium 10.2 (8.4-10.2) mg/dL AST 34 (14-36) U/L ALT 34 (4-34) U/L Alkaline Phosphatase 86 (38-126) U/L Total Protein 6.8 (6.3-8.2) g/dL Albumin 4.4 (3.5-5.0) g/dL Current Medications Generic Name Dose Route Start Last Admin Trade Name Leon PRN Reason Stop Dose Admin Acetaminophen 650 mg 12/21/24 23:36 Acetaminophen Tab 325 Mg Tab PO Q6HR PRN Mild Pain or Fever > 100.5 Dextrose/Water 25 ml 12/22/24 07:16 Dextrose 50% Syringe 50 Ml IVP PER PROTOCOL PRN Hypoglycemia Protocol Dextrose/Water 50 ml 12/22/24 07:16 Dextrose 50% Syringe 50 Ml IVP PER PROTOCOL PRN Hypoglycemia Protocol Heparin Sodium (Porcine) 0 unit 12/21/24 22:58 12/22/24 06:13 Heparin Sodium 1,000 Un/Ml (10ml Vl) IV 2,903 unit PER PROTOCOL PRN Administration Low PTT Protocol Heparin Sodium/Sodium Chloride 250 mls @ 6.967 mls/hr 12/21/24 23:00 12/22/24 06:14 25,000 unit/ Sodium Chloride IV 15 units/kg/hr .Q24H DARELL 8.709 mls/hr Titration Protocol 12 UNITS/KG/HR Insulin Human Lispro 0 unit 12/22/24 07:30 12/22/24 08:36 Insulin Lispro (Humalog) 100 Unit/Ml 10 Ml Vl SQ Not Given ACHS DARELL Protocol Levothyroxine Sodium 150 mcg 12/22/24 07:30 12/22/24 08:39 Levothyroxine 75 Mcg Tab PO 150 mcg 0630 DARELL Administration Losartan Potassium 100 mg 12/22/24 09:00 12/22/24 08:40 Losartan 50 Mg Tab PO 100 mg DAILY DARELL Administration Naloxone HCl 0.2 mg 12/21/24 23:36 Naloxone 0.4 Mg/Ml 1 Ml Vial IV Q2M PRN Opioid Reversal Pantoprazole Sodium 40 mg 12/22/24 09:00 12/22/24 08:40 Pantoprazole 40 Mg Tablet PO 40 mg DAILY DARELL Administration Intake and Output 12/21/24 12/22/24 12/22/24 22:59 06:59 14:59 Intake Total 46.563 Balance 46.563 Intake: Intake, IV Titration 46.563 Amount Heparin Sod,Pork in 0.45% 46.563 NaCl 25,000 unit In 0.45 % NaCl 1 250ml.bag @ 12 UNITS/KG/HR 6.967 mls/hr IV .Q24H [facility] Rx#: [id number] Other: # Voids 1 Weight 58.06 kg 58.06 kg 12/21/24 22:42 12/21/24 22:42
--- NOTE | 2024-12-22 13:53 | CA ---
Transthoracic Echo Report Name: Nicolasa Perez Age: 79 Gender: F : 1945 Exam Date: 12/22/2024 07:42 Exam Location: [facility] Ht (in): 61 Wt (lb): 128 Ordering Physician: Kenya Howe MD Attending/Referring Phys: [id number], Shyam Medical Consultant Naheed Obregon, [place] Procedure CPT: Indications: afib Cardiac Hx: Technical Quality: Good Contrast 1: Total Dose (mL): Contrast 2: Total Dose (mL): MEASUREMENTS (Male / Female) Normal Values 2D ECHO LV Diastolic Diameter PLAX 4.2 cm 4.2 - 5.9 / 3.9 - 5.3 cm LV Systolic Diameter PLAX 2.9 cm IVS Diastolic Thickness 0.9 cm 0.6 - 1.0 / 0.6 - 0.9 cm LVPW Diastolic Thickness 1.1 cm 0.6 - 1.0 / 0.6 - 0.9 cm LV Relative Wall Thickness 0.5 RV Internal Dim ED PLAX 1.9 cm LVOT Diameter 1.5 cm LA Systolic Diameter LX 3.8 cm 3.0 - 4.0 / 2.7 - 3.8 cm LV Diastolic Volume MOD BP 41.3 cm??? 67 - 155 / 56 - 104 cm??? LV Systolic Volume MOD BP 14.4 cm??? 22 - 58 / 19 - 49 cm??? LV Ejection Fraction MOD BP 65.3 % >= 55 % LV Cardiac Index MOD BP 1271.7 cm???/min???m??? LV Diastolic Volume MOD 4C 35.2 cm??? LV Systolic Volume MOD 4C 14.9 cm??? LV Ejection Fraction MOD 4C 57.7 % LV Cardiac Index MOD 4C 955.9 cm???/min???m??? LV Diastolic Length 4C 6.5 cm LV Systolic Length 4C 5.7 cm LV Diastolic Volume MOD 2C 47.3 cm??? LV Systolic Volume MOD 2C 13.0 cm??? LV Ejection Fraction MOD 2C 72.4 % LV Cardiac Index MOD 2C 1614.8 cm???/min???m??? LV Diastolic Length 2C 6.7 cm LV Systolic Length 2C 5.3 cm LA Volume 53.0 cm??? 18 - 58 / 22 - 52 cm??? LA Volume Index 33.3 cm???/m??? 16 - 28 cm???/m??? M-MODE Aortic Root Diameter MM 3.1 cm LA Systolic Diameter MM 3.9 cm LA Ao Ratio MM 1.3 AV Cusp Separation MM 1.8 cm DOPPLER MV Area PHT 3.5 cm??? Mitral E Point Velocity 98.2 cm/s Mitral A Point Velocity 72.3 cm/s Mitral E to A Ratio 1.4 MV Deceleration Time 214.7 ms TR Peak Velocity 271.5 cm/s TR Peak Gradient 29.5 mmHg Right Ventricular Systolic Press 34.0 mmHg FINDINGS Left Ventricle Left ventricular ejection fraction is estimated at 55-60 %. Mildly increased posterior wall thickness. Normal left ventricular systolic function with no obvious regional wall motion abnormalities. Left ventricular cavity size normal. Left ventricular wall thickness normal. Right Ventricle Normal right ventricular size and function. Right ventricular systolic pressure within normal limits. Right Atrium Normal right atrial size. Left Atrium Moderate left atrial dilatation. Interatrial septal aneurysm. Mitral Valve Structurally normal mitral valve. Mild mitral regurgitation. No mitral stenosis. Aortic Valve Trileaflet aortic valve. No aortic stenosis. No aortic regurgitation. Tricuspid Valve Structurally normal tricuspid valve. No tricuspid stenosis. Mild tricuspid regurgitation. Pulmonic Valve Structurally normal pulmonic valve. Trace pulmonic regurgitation. No pulmonic stenosis. Pericardium No pericardial or pleural effusion. Aorta Normal size aortic root and proximal ascending aorta. CONCLUSIONS LVEF 55 to 60% No obvious regional wall motion abnormality Normal RV size and systolic function Moderate left atrial dilatation Mild mitral regurgitation. Mild tricuspid regurgitation. Previewed by: Dr Shelton Pham (Electronically Signed) Final Date: 22 December 2024 09:48
--- NOTE | 2024-12-22 14:50 | P.DS ---
Providers Date of admission: 12/21/24 23:38 Expected date of discharge: 12/22/24 Attending physician: Kenya Howe MD Consults: 12/21/24 23:36 Consult Physician Urgent Consulting Provider: [facility] Consult Reason/Comments: New onset atrial fibrillation with RVR Do you want consulting provider notified?: Yes Primary care physician: Judy Walker MD Hospital Course: Discharge Diagnosis: New onset A-fib with RVR Dysphagia with previous reports of throat swelling Hypertension Jld-[id number] diabetes mellitus Hypothyroidism Hospital Course: Patient is a very pleasant 79-year-old female with a past medical history of hypertension, hypothyroidism, GERD with history of gastric bypass, non-insulin- dependent diabetes mellitus, and osteoarthritis. She presented to the emergency department on 12/21/2024 with a chief complaint of palpitations and feeling as though her throat was locking up or tightening. Upon arrival to our facility, patient underwent evaluation in the emergency department. Vital signs upon arrival show blood pressure 168/81, heart rate 124, respiratory rate 18, temp 97.5 F, and SpO2 of 97% on room air. EKG completed showing atrial fibrillation with RVR at 104 bpm chest x-ray completed showing slight central vascular prominence without overt edema or infiltrate. Labs were completed and reviewed. CBC showing leukocytosis with WBC count of 10.52 and normocytic anemia with hemoglobin of 11.9. Coagulation profile showing a low PTT of 9.7 otherwise normal findings. BMP unremarkable with the exception of mild prerenal azotemia with BUN of 22. Blood glucose was 82. Calcium 10.2. Magnesium 1.9. Liver profile unremarkable. Troponin was negative at less than 0.012. Patient was admitted under our services with consultation to cardiology. Troponins were trended all negative at less than 0.012 x 3 draws. TSH resulting low at 0.065 with a normal free T4 of 1.64. Patient was initially started on heparin infusion and later transition to oral Eliquis. She was started on metoprolol for rate control and this morning has converted to normal sinus mechanism. Patient was evaluated by cardiology and echocardiogram completed showing a preserved EF of 55 to 60%, moderate left atrial dilation, mild mitral regurgitation, and mild tricuspid regurgitation. Patient was evaluated by speech and language pathologist secondary to reports of throat locking up and concerns of previous swelling. Speech and language pathology report patient reported swallowing back at baseline with patient's symptoms resolved at time of assessment with oropharyngeal swallow judged as within normal limits with adequate cough and gag reflex and no difficulty with pharyngeal clearance observed clearing patient from their perspective. Patient cleared from cardiac perspective and is medically optimized for discharge at this time. She was discharged home with prescriptions for Eliquis and metoprolol and to follow-up outpatient with PCP in 1 to 2 days and with sales demonstrator in 1 week. Physical exam: Patient seen and examined at bedside. Vital signs reviewed and stable. General: Nontoxic, no distress and appears stated age. Derm: Skin warm and dry, normal coloration for ethnicity. Head: Atraumatic, normocephalic and symmetric. Eyes: EOM's intact, no lid lag, and anicteric sclera Mouth: no lip lesions, mucus membranes moist Cardiovascular: regular rate and rhythm with normal S1S2, no murmur, positive posterior tibial pulses bilaterally, and cap refill < 2 seconds. Lungs: Respirations even, regular, and unlabored on room air. Lungs CTA bilaterally, no rhonchi, no rales, no wheezing, and no accessory muscle usage. Abdominal: soft, nontender to palpation, no guarding, no appreciable organomegaly Ext: ROM intact. No gross muscle atrophy, no edema, no contractures Neuro: Speech clear, face symmetrical and CN II-XII grossly intact with no noted focal neuro deficits Psych: Alert and oriented to person, place, time, and situation. Appropriate and pleasant affect. A total of 35 minutes of time were spent preparing this complex discharge summary. Pt was discharged on 12/22/2024 at 2:49 PM. Patient was seen independently by Nurse Practitioner. This document was prepared using [employer] dictation software. Please allow for errors in labor relations supervisor while rare they do occur. Jack Mcknight NP rendered care for this patient independently, reviewed the findings and plan as documented in the note above. I did not physically speak with or examine the patient on this date. Patient Condition at Discharge: Stable Plan - Discharge Summary Discharge Rx Participant: No New Discharge Prescriptions: New Metoprolol Succinate (ER) [Toprol XL] 25 mg PO DAILY 30 Days #30 tab Apixaban [Eliquis] 2.5 mg PO BID 30 Days #60 tab Continue Zolpidem Tartrate [Ambien] 10 mg PO HS Risedronate Sodium [Actonel] 35 mg PO DORANTES traMADol HCl [Ultram] 50 mg PO TID@0000,1700,1999 Losartan Potassium 100 mg PO DAILY Pioglitazone HCl [Actos] 15 mg PO DAILY Docusate [Colace] 200 mg PO HS Biotin 10 mg PO HS Magnesium Oxide 1,200 mg PO HS Pantoprazole Sodium [Protonix] 40 mg PO DAILY PRN PRN Reason: Gi Upset Aloe Cure Digestive Supplement 1 tab PO BID Semaglutide [Ozempic] 2 mg SQ DORANTES Dicyclomine [Bentyl] 20 mg PO TID PRN PRN Reason: Gi Upset Ferrous Sulfate [Feosol] 325 mg PO HS Lansoprazole 30 mg PO HS Niacin 500 mg PO DAILY Levothyroxine Sodium [Synthroid] 125 mcg PO DAILY Sucralfate [Carafate] 1 gm PO TID PRN PRN Reason: Gi Upset Hyoscyamine Sulfate [Levsin] 0.125 mg PO TID PRN PRN Reason: Gi Upset Milk Thistle Sd Ext/Blessed Th [Milk Thistle 175-120 mg Cap] 1 cap PO HS Vit No.180/Iron/Folic [ Plus Vitamin-Mineral] 1 tab PO HS Cyanocobalamin (Vitamin B-12) [Vitamin B-12] 1,000 mcg PO HS Cholecalciferol [Vitamin D3 (125 Mcg = 5000 Iu)] 125 mcg PO DAILY Silver Sulfadiazine [Silver Sulfadiazine 1%] 1 applic TOPICAL DAILY Discharge Medication List Losartan Potassium 100 mg PO DAILY 10/26/14 [History] Pioglitazone HCl [Actos] 15 mg PO DAILY 10/26/14 [History] Risedronate Sodium [Actonel] 35 mg PO DORANTES 10/26/14 [History] Zolpidem Tartrate [Ambien] 10 mg PO HS 10/26/14 [History] traMADol HCl [Ultram] 50 mg PO TID@0000,1700,199910/26/14 [History] Docusate [Colace] 200 mg PO HS 11/07/14 [History] Biotin 10 mg PO HS 10/02/16 [History] Magnesium Oxide 1,200 mg PO HS 10/02/16 [History] Pantoprazole Sodium [Protonix] 40 mg PO DAILY PRN 01/14/19 [History] Aloe Cure Digestive Supplement 1 tab PO BID 12/22/24 [History] Apixaban [Eliquis] 2.5 mg PO BID 30 Days #60 tab 12/22/24 [Rx] Cholecalciferol [Vitamin D3 (125 Mcg = 5000 Iu)] 125 mcg PO DAILY 12/22/24 [History] Cyanocobalamin (Vitamin B-12) [Vitamin B-12] 1,000 mcg PO HS 12/22/24 [History] Dicyclomine [Bentyl] 20 mg PO TID PRN 12/22/24 [History] Ferrous Sulfate [Feosol] 325 mg PO HS 12/22/24 [History] Hyoscyamine Sulfate [Levsin] 0.125 mg PO TID PRN 12/22/24 [History] Lansoprazole 30 mg PO HS 12/22/24 [History] Levothyroxine Sodium [Synthroid] 125 mcg PO DAILY 12/22/24 [History] Metoprolol Succinate (ER) [Toprol XL] 25 mg PO DAILY 30 Days #30 tab 12/22/24 [Rx] Milk Thistle Sd Ext/Blessed Th [Milk Thistle 175-120 mg Cap] 1 cap PO HS 12/22/24 [History] Niacin 500 mg PO DAILY 12/22/24 [History] Vit No.180/Iron/Folic [ Plus Vitamin-Mineral] 1 tab PO HS 12/22/24 [History] Semaglutide [Ozempic] 2 mg SQ DORANTES 12/22/24 [History] Silver Sulfadiazine [Silver Sulfadiazine 1%] 1 applic TOPICAL DAILY 12/22/24 [History] Sucralfate [Carafate] 1 gm PO TID PRN 12/22/24 [History] Follow up Appointment(s)/Referral(s): Shelton Pham MD [Medical Doctor] - 1 Week Judy Walker MD [Primary Care Provider] - 1-2 days Patient Instructions/Handouts: A-fib (Atrial Fibrillation) (DC) Activity/Diet/Wound Care/Special Instructions: Activity: As tolerated. Take breaks as needed. Diet: Heart healthy and carb consistent diet. Avoid salts, or foods with hidden salts such as canned or boxed foods and frozen dinners. Extra salt makes your heart work harder and traps the fluid in your body for longer. Special Instructions: Take all of your medications as directed and remember to keep all of your doctor's appointments and follow-up as needed. You are also being discharged home on a blood thinner, Eliquis. This is very important to take daily as directed until otherwise advised by your sales demonstrator-Dr. Pham. Being that you are being placed on a blood thinner it is very important to watch for any signs of bleeding and notify your doctor immediately if you notice any bleeding. It is also important to remove any trip hazards such as rugs or loose extension cords from your home to prevent unnecessary falls and if you do experience a fall or head injury, it is extremely important to be evaluated by a medical provider immediately to ensure no internal bleeding. Thank you for allowing us to participate in your care, it was truly a pleasure having you for our patient!!! Discharge Disposition: HOME SELF-CARE
[2024-12-22 15:00] VITALS: BP 135/75; PULSE 67; TEMP 97.4
== END 2024-12-22 17:43 | disposition home or self-care (01) ==
LOC: EC 21:08 → 6NMEDSUR 23:38
PROVIDERS: ADMIT Internal Medicine; ATTEND Internal Medicine
DX: I48.0 Paroxysmal atrial fibrillation (principal); E11.9 Type 2 diabetes mellitus without complications; R13.10 Dysphagia, unspecified; I10 Essential (primary) hypertension; I08.1 Rheumatic disorders of both mitral and tricuspid valves; E03.9 Hypothyroidism, unspecified; K21.9 Gastro-esophageal reflux disease without esophagitis; D64.9 Anemia, unspecified; M19.90 Unspecified osteoarthritis, unspecified site; D72.829 Elevated white blood cell count, unspecified; R79.89 Other specified abnormal findings of blood chemistry; Z79.890 Hormone replacement therapy; Z79.84 Long term (current) use of oral hypoglycemic drugs; Z79.899 Other long term (current) drug therapy; Z88.4 Allergy status to anesthetic agent; Z88.8 Allergy status to other drugs, medicaments and biological substances; Z98.84 Bariatric surgery status; Z87.19 Personal history of other diseases of the digestive system
CPT/HCPCS: 96376 ×2; 96366 ×2; 96365; 99291; 36415; 93005; 93306; 92610; 84439; 80053; 84443; 83735; 84484 ×2; 85025; 85610; 85730 ×2; 71046; G0378; J1644 ×3